=== PATIENT | male | born 1950 | race Caucasian/White ===

== ENCOUNTER 2020-04-16 09:38 | Outpatient (REF) | payer MEDICARE, SELFPAY ==
[2020-04-16 10:06] LABS: MANUAL DIFF FLAG NO
[2020-04-16 10:09] LABS: Basophils Absolute Auto 0.1 X10*3/uL (0.0-0.2); Basophils Percent Auto 1.8 % (0-2); Eosinophils Absolute Auto 0.3 X10*3/uL (0.0-0.4); Eosinophils Percent Auto 4.5 % (0-4); Hematocrit 44.2 % (42-52); Hemoglobin 15.1 g/dl (14.0-18.0); Imm Gran Abs Auto 0.02 X10*3/uL (0.00-0.03); Imm Gran Pct Auto 0.3 % (0.0-0.4); Lymphocytes Absolute Auto 1.4 X10*3/uL (1.2-4.9); Lymphocytes Percent Auto 23.1 % (20-40); Mean Corpuscular HGB Conc 34.2 g/dl (31.0-36.0); Mean Corpuscular Hemoglobin 32.3 pg (27.0-33.0); Mean Corpuscular Volume 94.6 fL (80-98); Mean Platelet Volume 9.3 fL (9.4-12.4); Monocytes Absolute Auto 0.6 X10*3/uL (0.1-1.2); Monocytes Percent Auto 9.4 % (2-11); Neutrophils Absolute Auto 3.8 X10*3/uL (2.0-8.3); Neutrophils Percent Auto 60.9 % (45-73); Platelet Count 218 X10*3/uL (160-400); Red Blood Count 4.67 X10*6/uL (4.60-5.80); Red Cell Distribution Width 11.9 % (11.0-16.0); White Blood Count 6.2 X10*3/uL (4.8-10.8)
[2020-04-16 10:29] LABS: Alanine Aminotransferase 51 U/L (0-40); Albumin Level 4.6 g/dL (3.5-5.0); Alkaline Phosphatase 101 U/L (39-117); Anion Gap 10 (12-20); Aspartate Amino Transferase 41 U/L (5-37); Bilirubin Total 1.2 mg/dL (0.0-1.0); Blood Urea Nitrogen 13 mg/dL (9-16); Calcium 9.9 mg/dL (8.4-10.2); Carbon Dioxide 32 mmol/L (22-29); Chloride 102 mmol/L (96-108); Cholesterol 190 mg/dL; Estimated Glomerular Filt Rate > 60; Glucose Fasting 111 mg/dL (60-99); HDL Cholesterol 66 mg/dL; LDL Cholesterol Calculated 110 mg/dl; Potassium 4.5 mmol/l (3.3-5.1); Sodium 139 mmol/L (135-145); Total Protein 7.5 g/dL (6.5-8.0); Triglycerides 71 mg/dL
[2020-04-18 08:52] LABS: Vitamin B12 226 pg/mL (200-900)
== END 2020-04-16 09:39 | disposition home or self-care (01) ==
LOC: HO.LAB 09:38
PROVIDERS: PCP Internal Medicine Medical Oncology; Visit Provider Internal Medicine Medical Oncology
DX: M54.5 Low back pain (principal); E78.5 Hyperlipidemia, unspecified
CPT/HCPCS: 36415; 80053; 80061; 82607; 85025

== ENCOUNTER 2020-07-18 11:32 | Outpatient (REF) | payer MEDICARE, SELFPAY | END 2020-07-18 11:33 | disposition home or self-care (01) | LOC: HO.LAB 11:32 | PROVIDERS: Visit Provider Internal Medicine | DX: Z20.822 Contact with and (suspected) exposure to COVID-19 (principal) | CPT/HCPCS: 36415; C9803; U0003; U0005 ==

== ENCOUNTER 2020-08-13 09:31 | Outpatient (REF) | payer MEDICARE, SELFPAY ==
[2020-08-13 10:10] LABS: MANUAL DIFF FLAG NO
[2020-08-13 10:14] LABS: Basophils Absolute Auto 0.1 X10*3/uL (0.0-0.2); Basophils Percent Auto 1.8 % (0-2); Eosinophils Absolute Auto 0.3 X10*3/uL (0.0-0.4); Eosinophils Percent Auto 4.1 % (0-4); Hematocrit 41.6 % (42-52); Imm Gran Abs Auto 0.02 X10*3/uL (0.00-0.03); Imm Gran Pct Auto 0.3 % (0.0-0.4); Lymphocytes Absolute Auto 1.3 X10*3/uL (1.2-4.9); Lymphocytes Percent Auto 19.8 % (20-40); Mean Corpuscular HGB Conc 33.7 g/dl (31.0-36.0); Mean Corpuscular Volume 95.2 fL (80-98); Mean Platelet Volume 9.6 fL (9.4-12.4); Monocytes Absolute Auto 0.5 X10*3/uL (0.1-1.2); Monocytes Percent Auto 7.2 % (2-11); Neutrophils Absolute Auto 4.3 X10*3/uL (2.0-8.3); Neutrophils Percent Auto 66.8 % (45-73); Platelet Count 195 X10*3/uL (160-400); Red Blood Count 4.37 X10*6/uL (4.60-5.80); Red Cell Distribution Width 12.5 % (11.0-16.0); White Blood Count 6.5 X10*3/uL (4.8-10.8)
[2020-08-13 10:44] LABS: Alanine Aminotransferase 43 U/L (0-40); Albumin Level 4.5 g/dL (3.5-5.0); Alkaline Phosphatase 96 U/L (39-117); Anion Gap 12 (12-20); Aspartate Amino Transferase 35 U/L (5-37); Bilirubin Total 1.2 mg/dL (0.0-1.0); Blood Urea Nitrogen 18 mg/dL (9-16); Calcium 9.7 mg/dL (8.4-10.2); Carbon Dioxide 30 mmol/L (22-29); Chloride 104 mmol/L (96-108); Cholesterol 204 mg/dL; Estimated Glomerular Filt Rate > 60; Glucose Fasting 114 mg/dL (60-99); HDL Cholesterol 73 mg/dL; LDL Cholesterol Calculated 114 mg/dl; Potassium 4.7 mmol/L (3.3-5.1); Sodium 141 mmol/L (135-145); Total Protein 7.3 g/dL (6.5-8.0); Triglycerides 85 mg/dL
== END 2020-08-13 09:32 | disposition home or self-care (01) ==
LOC: HO.LAB 09:31
PROVIDERS: PCP Internal Medicine Medical Oncology; Visit Provider Internal Medicine Medical Oncology
DX: Z12.5 Encounter for screening for malignant neoplasm of prostate (principal); N40.0 Benign prostatic hyperplasia without lower urinary tract symptoms; E78.5 Hyperlipidemia, unspecified
CPT/HCPCS: 36415; 80053; 80061; 84153; 85025

== ENCOUNTER 2020-12-16 11:13 | Outpatient (REF) | payer MEDICARE, SELFPAY ==
[2020-12-16 12:03] LABS: MANUAL DIFF FLAG NO
[2020-12-16 12:14] LABS: Basophils Absolute Auto 0.1 X10*3/uL (0.0-0.2); Basophils Percent Auto 1.3 % (0-2); Eosinophils Absolute Auto 0.2 X10*3/uL (0.0-0.4); Eosinophils Percent Auto 3.3 % (0-4); Hematocrit 42.1 % (42-52); Hemoglobin 14.3 g/dl (14.0-18.0); Imm Gran Abs Auto 0.03 X10*3/uL (0.00-0.03); Imm Gran Pct Auto 0.4 % (0.0-0.4); Lymphocytes Absolute Auto 1.7 X10*3/uL (1.2-4.9); Lymphocytes Percent Auto 24.2 % (20-40); Mean Corpuscular Volume 94.2 fL (80-98); Mean Platelet Volume 9.4 fL (9.4-12.4); Monocytes Absolute Auto 0.6 X10*3/uL (0.1-1.2); Monocytes Percent Auto 7.9 % (2-11); Neutrophils Absolute Auto 4.4 X10*3/uL (2.0-8.3); Neutrophils Percent Auto 62.9 % (45-73); Platelet Count 192 X10*3/uL (160-400); Red Blood Count 4.47 X10*6/uL (4.60-5.80); Red Cell Distribution Width 12.4 % (11.0-16.0)
[2020-12-16 12:37] LABS: Alanine Aminotransferase 70 U/L (0-40); Albumin Level 4.6 g/dL (3.5-5.0); Alkaline Phosphatase 101 U/L (39-117); Anion Gap 13 (12-20); Aspartate Amino Transferase 45 U/L (5-37); Bilirubin Total 1.4 mg/dL (0.0-1.0); Blood Urea Nitrogen 12 mg/dL (9-16); Calcium 10.3 mg/dL (8.4-10.2); Carbon Dioxide 29 mmol/L (22-29); Chloride 103 mmol/L (96-108); Cholesterol 193 mg/dL; Estimated Glomerular Filt Rate > 60; Glucose Fasting 95 mg/dL (60-99); HDL Cholesterol 74 mg/dL; LDL Cholesterol Calculated 105 mg/dl; Potassium 4.7 mmol/L (3.3-5.1); Sodium 140 mmol/L (135-145); Total Protein 7.4 g/dL (6.5-8.0); Triglycerides 72 mg/dL
== END 2020-12-16 11:14 | disposition home or self-care (01) ==
LOC: HO.LAB 11:13
PROVIDERS: PCP Internal Medicine Medical Oncology; Visit Provider Internal Medicine Medical Oncology
DX: N40.0 Benign prostatic hyperplasia without lower urinary tract symptoms (principal); E78.5 Hyperlipidemia, unspecified; K21.9 Gastro-esophageal reflux disease without esophagitis
CPT/HCPCS: 36415; 80053; 80061; 85025

== ENCOUNTER 2021-04-14 10:08 | Outpatient (REF) | payer MEDICARE, SELFPAY ==
[2021-04-14 11:26] LABS: MANUAL DIFF FLAG NO
[2021-04-14 11:38] LABS: Basophils Absolute Auto 0.1 X10*3/uL (0.0-0.2); Basophils Percent Auto 1.9 % (0-2); Eosinophils Absolute Auto 0.3 X10*3/uL (0.0-0.4); Eosinophils Percent Auto 3.9 % (0-4); Hematocrit 43.7 % (42.0-52.0); Hemoglobin 14.6 g/dl (14.0-18.0); Imm Gran Abs Auto 0.02 X10*3/uL (0.00-0.03); Imm Gran Pct Auto 0.3 % (0.0-0.4); Lymphocytes Absolute Auto 1.5 X10*3/uL (1.2-4.9); Lymphocytes Percent Auto 23.9 % (20-40); Mean Corpuscular HGB Conc 33.4 g/dl (31.0-36.0); Mean Corpuscular Hemoglobin 31.8 pg (27.0-33.0); Mean Corpuscular Volume 95.2 fL (80.0-98.0); Mean Platelet Volume 9.6 fL (9.4-12.4); Monocytes Absolute Auto 0.7 X10*3/uL (0.1-1.2); Neutrophils Absolute Auto 3.8 x10*3/uL (2.0-8.3); Platelet Count 250 X10*3/uL (160-400); Red Blood Count 4.59 X10*6/uL (4.60-5.80); Red Cell Distribution Width 12.8 % (11.0-16.0); White Blood Count 6.5 X10*3/uL (4.8-10.8)
[2021-04-14 12:09] LABS: Alanine Aminotransferase 98 U/L (0-40); Albumin Level 4.4 g/dL (3.5-5.0); Alkaline Phosphatase 119 U/L (39-117); Anion Gap 11 (12-20); Aspartate Amino Transferase 63 U/L (5-37); Bilirubin Total 1.2 mg/dL (0.0-1.0); Blood Urea Nitrogen 12 mg/dL (9-16); Carbon Dioxide 30 mmol/L (22-29); Chloride 101 mmol/L (96-108); Cholesterol 201 mg/dL; Estimated Glomerular Filt Rate > 60; Glucose Fasting 96 mg/dL (60-99); HDL Cholesterol 64 mg/dL; LDL Cholesterol Calculated 114 mg/dl; Potassium 4.3 mmol/L (3.3-5.1); Sodium 138 mmol/L (135-145); Total Protein 7.5 g/dL (6.5-8.0); Triglycerides 115 mg/dL
[2021-04-14 12:11] LABS: Prostate Specific Antigen 0.49 ng/mL (<0.05-4.0)
== END 2021-04-14 10:09 | disposition home or self-care (01) ==
LOC: HO.HMGCLDS 10:08
PROVIDERS: PCP Internal Medicine Medical Oncology; Visit Provider Internal Medicine Medical Oncology
DX: M51.24 Other intervertebral disc displacement, thoracic region (principal); E78.5 Hyperlipidemia, unspecified; N40.0 Benign prostatic hyperplasia without lower urinary tract symptoms
CPT/HCPCS: 36415; 80053; 80061; 84153; 85025

== ENCOUNTER 2021-04-25 08:54 | Outpatient (REF) | payer MEDICARE, SELFPAY | END 2021-04-25 08:55 | disposition home or self-care (01) | LOC: HO.LAB 08:54 | PROVIDERS: Visit Provider Internal Medicine | DX: Z13.89 Encounter for screening for other disorder (principal) ==

== ENCOUNTER 2021-06-24 11:38 | Outpatient (REF) | payer MEDICARE, SELFPAY ==
[2021-06-24 13:10] LABS: MANUAL DIFF FLAG NO
[2021-06-24 13:27] LABS: Basophils Absolute Auto 0.1 X10*3/uL (0.0-0.2); Basophils Percent Auto 1.6 % (0-2); Eosinophils Absolute Auto 0.2 X10*3/uL (0.0-0.4); Eosinophils Percent Auto 3.9 % (0-4); Hematocrit 40.7 % (42.0-52.0); Hemoglobin 13.9 g/dl (14.0-18.0); Imm Gran Abs Auto 0.02 X10*3/uL (0.00-0.03); Imm Gran Pct Auto 0.4 % (0.0-0.4); Lymphocytes Absolute Auto 1.4 X10*3/uL (1.2-4.9); Lymphocytes Percent Auto 25.4 % (20-40); Mean Corpuscular HGB Conc 34.2 g/dl (31.0-36.0); Mean Corpuscular Volume 93.8 fL (80.0-98.0); Mean Platelet Volume 9.7 fL (9.4-12.4); Monocytes Absolute Auto 0.6 X10*3/uL (0.1-1.2); Monocytes Percent Auto 10.2 % (2-11); Neutrophils Absolute Auto 3.3 x10*3/uL (2.0-8.3); Neutrophils Percent Auto 58.5 % (45-73); Platelet Count 201 X10*3/uL (160-400); Red Blood Count 4.34 X10*6/uL (4.60-5.80); Red Cell Distribution Width 12.2 % (11.0-16.0); White Blood Count 5.6 X10*3/uL (4.8-10.8)
[2021-06-24 13:50] LABS: Gamma Glutamyl Transpeptidase 441 U/L (11-51); Lactate Dehydrogenase 149 U/L (118-273)
[2021-06-24 14:16] LABS: Erythrocyte Sedimentation Rate 7 MM/HR (0-15)
== END 2021-06-24 11:39 | disposition home or self-care (01) ==
LOC: HO.HMGCLDS 11:38
PROVIDERS: PCP Internal Medicine Medical Oncology; Visit Provider Internal Medicine Medical Oncology
DX: E78.5 Hyperlipidemia, unspecified (principal)
CPT/HCPCS: 36415; 82977; 83615; 85025; 85652

== ENCOUNTER 2021-07-26 13:10 | Outpatient (REF) | payer MEDICARE, SELFPAY ==
[2021-07-26 17:36] LABS: Alanine Aminotransferase 41 U/L (0-40); Albumin Level 4.2 g/dL (3.5-5.0); Alkaline Phosphatase 101 U/L (39-117); Anion Gap 10 (12-20); Aspartate Amino Transferase 29 U/L (5-37); Bilirubin Total 0.8 mg/dL (0.0-1.0); Blood Urea Nitrogen 17 mg/dL (9-16); Calcium 9.9 mg/dL (8.4-10.2); Carbon Dioxide 29 mmol/L (22-29); Chloride 105 mmol/L (96-108); Estimated Glomerular Filt Rate > 60; Glucose Random 97 mg/dL (60-115); Potassium 3.9 mmol/L (3.3-5.1); Sodium 140 mmol/L (135-145); Total Protein 6.9 g/dL (6.5-8.0)
[2021-07-26 17:47] LABS: Gamma Glutamyl Transpeptidase 188 U/L (11-51)
[2021-07-26 20:41] LABS: Erythrocyte Sedimentation Rate 11 MM/HR (0-15)
== END 2021-07-26 13:11 | disposition home or self-care (01) ==
LOC: HO.HMGCLDS 13:10
PROVIDERS: PCP Internal Medicine Medical Oncology; Visit Provider Internal Medicine Medical Oncology
DX: K21.9 Gastro-esophageal reflux disease without esophagitis (principal); R79.89 Other specified abnormal findings of blood chemistry
CPT/HCPCS: 36415; 80053; 82977; 85652

== ENCOUNTER 2021-12-16 10:37 | Outpatient (REF) | payer MEDICARE, SELFPAY ==
[2021-12-16 11:10] LABS: MANUAL DIFF FLAG NO
[2021-12-16 11:13] LABS: Basophils Absolute Auto 0.1 X10*3/uL (0.0-0.2); Basophils Percent Auto 1.4 % (0-2); Eosinophils Absolute Auto 0.3 X10*3/uL (0.0-0.4); Eosinophils Percent Auto 4.2 % (0-4); Hematocrit 41.9 % (42.0-52.0); Hemoglobin 14.3 g/dl (14.0-18.0); Imm Gran Abs Auto 0.05 X10*3/uL (0.00-0.03); Imm Gran Pct Auto 0.8 % (0.0-0.4); Lymphocytes Absolute Auto 1.3 X10*3/uL (1.2-4.9); Mean Corpuscular HGB Conc 34.1 g/dl (31.0-36.0); Mean Corpuscular Volume 93.7 fL (80.0-98.0); Mean Platelet Volume 9.2 fL (9.4-12.4); Monocytes Absolute Auto 0.6 X10*3/uL (0.1-1.2); Monocytes Percent Auto 9.4 % (2-11); Neutrophils Absolute Auto 4.2 x10*3/uL (2.0-8.3); Neutrophils Percent Auto 64.2 % (45-73); Platelet Count 197 X10*3/uL (160-400); Red Blood Count 4.47 X10*6/uL (4.60-5.80); Red Cell Distribution Width 12.8 % (11.0-16.0); White Blood Count 6.5 X10*3/uL (4.8-10.8)
[2021-12-16 11:35] LABS: Alanine Aminotransferase 65 U/L (0-40); Albumin Level 4.3 g/dL (3.5-5.0); Alkaline Phosphatase 104 U/L (39-117); Anion Gap 14 (12-20); Aspartate Amino Transferase 44 U/L (5-37); Bilirubin Total 1.6 mg/dL (0.0-1.0); Blood Urea Nitrogen 13 mg/dL (9-16); Calcium 9.7 mg/dL (8.4-10.2); Carbon Dioxide 27 mmol/L (22-29); Chloride 101 mmol/L (96-108); Cholesterol 192 mg/dL; Estimated Glomerular Filt Rate > 60; Gamma Glutamyl Transpeptidase 360 U/L (11-51); Glucose Random 96 mg/dL (60-115); HDL Cholesterol 66 mg/dL; LDL Cholesterol Calculated 108 mg/dl; Potassium 4.1 mmol/L (3.3-5.1); Sodium 138 mmol/L (135-145); Total Protein 7.1 g/dL (6.5-8.0); Triglycerides 93 mg/dL
[2021-12-16 11:53] LABS: Prostate Specific Antigen 0.43 ng/mL (<0.05-4.0)
== END 2021-12-16 10:38 | disposition home or self-care (01) ==
LOC: HO.HMGCLDS 10:37
PROVIDERS: PCP Internal Medicine Medical Oncology; Visit Provider Internal Medicine Medical Oncology
DX: Z12.5 Encounter for screening for malignant neoplasm of prostate (principal); K21.9 Gastro-esophageal reflux disease without esophagitis; R35.1 Nocturia; N40.0 Benign prostatic hyperplasia without lower urinary tract symptoms; R79.89 Other specified abnormal findings of blood chemistry; E66.3 Overweight
CPT/HCPCS: 36415; 80053; 80061; 82977; 84153; 85025

== ENCOUNTER 2022-03-19 10:15 | Outpatient (REF) | payer MEDICARE, SELFPAY ==
[2022-03-19 11:36] LABS: MANUAL DIFF FLAG NO
[2022-03-19 11:54] LABS: Basophils Absolute Auto 0.1 X10*3/uL (0.0-0.2); Basophils Percent Auto 1.4 % (0-2); Eosinophils Absolute Auto 0.2 X10*3/uL (0.0-0.4); Eosinophils Percent Auto 2.5 % (0-4); Hematocrit 40.8 % (42.0-52.0); Hemoglobin 13.7 g/dl (14.0-18.0); Imm Gran Abs Auto 0.06 X10*3/uL (0.00-0.03); Imm Gran Pct Auto 0.9 % (0.0-0.4); Lymphocytes Absolute Auto 1.3 X10*3/uL (1.2-4.9); Lymphocytes Percent Auto 19.7 % (20-40); Mean Corpuscular HGB Conc 33.6 g/dl (31.0-36.0); Mean Corpuscular Volume 95.3 fL (80.0-98.0); Mean Platelet Volume 9.3 fL (9.4-12.4); Monocytes Absolute Auto 0.8 X10*3/uL (0.1-1.2); Monocytes Percent Auto 11.7 % (2-11); Neutrophils Absolute Auto 4.1 x10*3/uL (2.0-8.3); Neutrophils Percent Auto 63.8 % (45-73); Platelet Count 205 X10*3/uL (160-400); Red Blood Count 4.28 X10*6/uL (4.60-5.80); Red Cell Distribution Width 13.7 % (11.0-16.0); White Blood Count 6.4 X10*3/uL (4.8-10.8)
[2022-03-19 12:33] LABS: Alanine Aminotransferase 43 U/L (0-40); Albumin Level 4.4 g/dL (3.5-5.0); Alkaline Phosphatase 97 U/L (39-117); Anion Gap 15 (12-20); Aspartate Amino Transferase 34 U/L (5-37); Bilirubin Total 1.4 mg/dL (0.0-1.0); Blood Urea Nitrogen 13 mg/dL (9-16); Calcium 9.8 mg/dL (8.4-10.2); Carbon Dioxide 27 mmol/L (22-29); Chloride 101 mmol/L (96-108); Cholesterol 203 mg/dL; Estimated Glomerular Filt Rate > 60; Glucose Fasting 96 mg/dL (60-99); HDL Cholesterol 80 mg/dL; LDL Cholesterol Calculated 105 mg/dl; Potassium 3.9 mmol/L (3.3-5.1); Sodium 139 mmol/L (135-145); Total Protein 7.4 g/dL (6.5-8.0); Triglycerides 92 mg/dL
== END 2022-03-19 10:16 | disposition home or self-care (01) ==
LOC: HO.HMGCLDS 10:15
PROVIDERS: PCP Internal Medicine Medical Oncology; Visit Provider Internal Medicine Medical Oncology
DX: E78.5 Hyperlipidemia, unspecified (principal); E66.3 Overweight
CPT/HCPCS: 36415; 80053; 80061; 85025

== ENCOUNTER 2022-07-18 09:15 | Outpatient (REF) | payer MEDICARE, SELFPAY ==
[2022-07-18 11:52] LABS: MANUAL DIFF FLAG NO
[2022-07-18 12:06] LABS: Basophils Absolute Auto 0.1 X10*3/uL (0.0-0.2); Basophils Percent Auto 1.7 % (0-2); Eosinophils Absolute Auto 0.2 X10*3/uL (0.0-0.4); Eosinophils Percent Auto 2.6 % (0-4); Hemoglobin 14.8 g/dl (14.0-18.0); Imm Gran Abs Auto 0.03 X10*3/uL (0.00-0.03); Imm Gran Pct Auto 0.5 % (0.0-0.4); Lymphocytes Absolute Auto 1.2 X10*3/uL (1.2-4.9); Lymphocytes Percent Auto 17.7 % (20-40); Mean Corpuscular HGB Conc 34.4 g/dl (31.0-36.0); Mean Corpuscular Hemoglobin 32.7 pg (27.0-33.0); Mean Corpuscular Volume 95.1 fL (80.0-98.0); Mean Platelet Volume 9.5 fL (9.4-12.4); Monocytes Absolute Auto 0.6 X10*3/uL (0.1-1.2); Monocytes Percent Auto 9.5 % (2-11); Neutrophils Absolute Auto 4.5 x10*3/uL (2.0-8.3); Platelet Count 212 X10*3/uL (160-400); Red Blood Count 4.52 X10*6/uL (4.60-5.80); Red Cell Distribution Width 12.7 % (11.0-16.0); White Blood Count 6.6 X10*3/uL (4.8-10.8)
[2022-07-18 13:04] LABS: Alanine Aminotransferase 59 U/L (0-40); Albumin Level 3.9 g/dL (3.5-5.0); Alkaline Phosphatase 90 U/L (39-117); Anion Gap 13 (12-20); Aspartate Amino Transferase 44 U/L (5-37); Bilirubin Total 1.5 mg/dL (0.0-1.0); Blood Urea Nitrogen 11 mg/dL (9-16); Calcium 9.3 mg/dL (8.4-10.2); Carbon Dioxide 26 mmol/L (22-29); Chloride 105 mmol/L (96-108); Cholesterol 185 mg/dL; Estimated Glomerular Filt Rate > 60; Glucose Fasting 114 mg/dL (60-99); HDL Cholesterol 66 mg/dL; LDL Cholesterol Calculated 104 mg/dl; Potassium 3.9 mmol/L (3.3-5.1); Prostate Specific Antigen 0.49 ng/mL (<0.05-4.0); Sodium 140 mmol/L (135-145); Total Protein 6.4 g/dL (6.5-8.0); Triglycerides 79 mg/dL
== END 2022-07-18 09:16 | disposition home or self-care (01) ==
LOC: HO.HMGCLDS 09:15
PROVIDERS: PCP Internal Medicine Medical Oncology; Visit Provider Internal Medicine Medical Oncology
DX: R79.89 Other specified abnormal findings of blood chemistry (principal); K21.9 Gastro-esophageal reflux disease without esophagitis; E78.5 Hyperlipidemia, unspecified; R35.1 Nocturia; Z12.5 Encounter for screening for malignant neoplasm of prostate
CPT/HCPCS: 36415; 80053; 80061; 84153; 85025

== ENCOUNTER 2022-07-25 11:35 | Outpatient (REF) | payer MEDICARE, SELFPAY ==
[2022-07-25 14:50] LABS: B Type Natriuretic Peptide 24 pg/mL (<100); Free T4 (Free Thyroxine) 0.84 ng/dL (0.71-1.85); Thyroid Stimulating Hormone 1.07 uIU/mL (0.32-4.0)
[2022-07-25 15:26] LABS: Erythrocyte Sedimentation Rate 5 MM/HR (0-15)
== END 2022-07-25 11:36 | disposition home or self-care (01) ==
LOC: HO.HMGCLDS 11:35
PROVIDERS: Visit Provider Internal Medicine Medical Oncology
DX: R00.2 Palpitations (principal); R00.0 Tachycardia, unspecified
CPT/HCPCS: 36415; 83880; 84439; 84443; 85652

== ENCOUNTER → 2022-07-27 08:52 | Outpatient (REF) | payer MEDICARE, SELFPAY ==
--- NOTE | 2022-07-27 08:54 | CA_ITS ---
Transthoracic Echocardiogram Patient (Last, First, Middle): Miguel Cid H Gender: Male Date of : 1950 Age: 71 Procedure Date: 07/27/2022 Procedure Type: Transthoracic Echocardiogram Location: OP Height: 182.88 cm Weight: 83.92 kg BSA: 2.06 m2 Heart Rate: bpm BP: 118 / 66 mmHg Poultryman: Referring MD: Ian Carney MD Symptoms: R00.2 PALPITATIONS R00.0 SINUS TACHYCARDIA Study Quality: Fair ECG Rhythm: Sinus Conclusions: - The left ventricular systolic function is normal. The visually estimated ejection fraction is between 55-60%. - No obvious valvular pathology seen on this study. Findings Left Ventricle Normal left ventricular cavity size. There is mildly increased left ventricular wall thickness. The left ventricular systolic function is normal. The visually estimated ejection fraction is between 55-60%. There is no evidence of regional wall motion abnormalities. Diastolic function is normal for age. LV peak GLS -16.3%. Right Ventricle Normal right ventricular cavity size and systolic function. Atria Both atria are normal in size. Aortic Valve There is a normal trileaflet aortic valve. There is mild calcification of the aortic valve. There is no aortic valve stenosis. There is no aortic valve regurgitation. Mitral Valve The mitral valve appears normal. There is mild mitral annular calcification. There is no mitral valve regurgitation. There is no mitral valve stenosis. Pulmonic Valve The pulmonic valve is likely normal. Tricuspid Valve Normal tricuspid valve structure. There is trace tricuspid valve regurgitation. There is no evidence of pulmonary hypertension. Great Vessels The asc aorta is normal in size. Venous The inferior vena cava is normal in size and collapses greater than 50% with inspiration. Pericardium/Pleural There is no evidence of pericardial effusion. Prior Study Comparison No significant change compared to prior study dated: 02/03/2010. Recommendations, Care & Conclusions No obvious valvular pathology seen on this study. Measurements 2D Linear Measurements IVSd: 1.23 0.6-0.9/0.6-1.0 cm LVIDd: 4.25 3.9-5.3/4.2-5.9 cm LVIDd Index: 2.06 2.4-3.2/2.2-3.1 cm/m2 LVIDs: 2.97 2.0-3.6 cm LVPWd: 1.28 0.7-1.1 cm Ao Root: 3.30 2.1-3.5 cm LA Diam: 3.80 2.7-3.8/3.0-4.0 cm LAIDs Index: 1.84 1.5-2.3 cm/m2 LV Mass: 241.44 67-162/88-224 g LV Mass Index: 117.20 43-95/49-115 g/m2 LVOT Diam: 2.20 3.0+(-)1.3 cm 2D Systolic Function EF 4C: 55.60 >55% EF 2C: 46.60 >55% Mitral Valve MV Pk E: 0.62 MV PK A: 1.05 MV Decel Time: 140.00 E/A: 0.60 E'Lateral: 6.42 E'Medial: 5.66 E/E' Med: 10.90 E/E' Lat: 9.60 PHT: 41.00 MVA PHT: 5.37 Decel [place]: 4.40 Aortic Valve AoV Pk Des: 1.35 AoV Mn Des: 0.90 AoV VTI: 0.26 AoV Pk Grad: 7.00 Aov Mn Grad: 4.00 ZUNILDA Cont.VTI: 2.82 LVOT LVOT Pk Des: 0.94 LVOT Mn Des: 0.69 LVOT VTI: 0.19 LVOT Pk Grad: 4.00 LVOT Mn Grad: 2.00 LVOT Diam: 2.20 LVOT Area: 3.80 Diastolic Function MV Pk E: 0.62 MV Pk A: 1.05 E/A: 0.60 E'Medial: 5.66 E/E' Med: 10.90 E' Laterial: 6.42 E/E' Lat: 9.60 Right Ventricle TAPSE (mm): 28.00 TVS' Des: 14.00 Tricuspid Valve TR Pk Des: 1.85 TR Pk Grad: 14.00 RA Press: 3.00 RVSP: 17.00 Great Vessels Aorta Ao Root-2D: 3.30 2.0-3.7 cm Ao Asc: 3.20 2.1-3.4 cm Pulmonary Valve PV Pk Des: 0.94 Peak PV Grad: 4.00 Updated in Other Vendor System with Status of Final Isaiah Saba MD electronically signed on 07/28/2022 10:59:13 AM with status of Final
== END ==
LOC: HO.CARD 08:52
PROVIDERS: PCP Internal Medicine Medical Oncology; Visit Provider Internal Medicine Medical Oncology
DX: R00.2 Palpitations (principal); R00.0 Tachycardia, unspecified
CPT/HCPCS: 93306; 93356

== ENCOUNTER 2022-09-29 12:15 | Outpatient (REF) | payer MEDICARE, SELFPAY ==
--- NOTE | ~2022-09-29 | XR_ITS ---
EXAMINATION: XR CERVICAL SPINE CLINICAL INFORMATION: Left-sided shoulder and neck pain. COMPARISON: None available. TECHNIQUE: 5 views of the cervical spine were obtained. FINDINGS: There is mild 2 mm anterior subluxation of C2 with respect to C3, C3 with respect to C4, and C4 with respect to C5. Bone alignment is otherwise normal. There is multilevel degenerative spondylosis and degenerative disc disease, greatest at C4-C5, C5-C6 and C6-C7. There is right-sided neural foraminal narrowing from bony osteophyte from C3-C4 to C6-C7. There is left-sided neural foraminal narrowing from bony osteophyte from C3-C4 to C5-C6, greatest at C3-C4. Prevertebral soft tissues are normal. There is bilateral carotid calcification. XR/XR cervical spine 4V IMPRESSION: Multilevel degenerative changes.
== END 2022-09-29 12:16 | disposition home or self-care (01) ==
LOC: HO.HMGCX 12:15
PROVIDERS: PCP Internal Medicine Medical Oncology; Visit Provider Physical Medicine & Rehabilitation
DX: S16.1XXA Strain of muscle, fascia and tendon at neck level, initial encounter (principal)
CPT/HCPCS: 72050

== ENCOUNTER 2022-12-05 09:14 | Outpatient (REF) | payer MEDICARE, SELFPAY ==
[2022-12-05 11:36] LABS: MANUAL DIFF FLAG NO
[2022-12-05 11:40] LABS: Basophils Absolute Auto 0.1 X10*3/uL (0.0-0.2); Basophils Percent Auto 1.7 % (0-2); Eosinophils Absolute Auto 0.3 X10*3/uL (0.0-0.4); Eosinophils Percent Auto 4.1 % (0-4); Hematocrit 43.3 % (42.0-52.0); Hemoglobin 14.7 g/dl (14.0-18.0); Imm Gran Abs Auto 0.02 X10*3/uL (0.00-0.03); Imm Gran Pct Auto 0.3 % (0.0-0.4); Lymphocytes Absolute Auto 1.2 X10*3/uL (1.2-4.9); Lymphocytes Percent Auto 19.4 % (20-40); Mean Corpuscular HGB Conc 33.9 g/dl (31.0-36.0); Mean Corpuscular Hemoglobin 32.6 pg (27.0-33.0); Mean Platelet Volume 9.9 fL (9.4-12.4); Monocytes Absolute Auto 0.5 X10*3/uL (0.1-1.2); Monocytes Percent Auto 8.5 % (2-11); Platelet Count 210 X10*3/uL (160-400); Red Blood Count 4.51 X10*6/uL (4.60-5.80); Red Cell Distribution Width 12.5 % (11.0-16.0)
[2022-12-05 12:37] LABS: Prostate Specific Antigen 0.37 ng/mL (<0.05-4.0)
[2022-12-05 12:40] LABS: Alanine Aminotransferase 49 U/L (0-40); Albumin Level 4.2 g/dL (3.5-5.0); Alkaline Phosphatase 98 U/L (39-117); Anion Gap 14 (12-20); Aspartate Amino Transferase 37 U/L (5-37); Bilirubin Total 1.2 mg/dL (0.0-1.0); Blood Urea Nitrogen 11 mg/dL (9-16); Calcium 10.1 mg/dL (8.4-10.2); Carbon Dioxide 28 mmol/L (22-29); Chloride 103 mmol/L (96-108); Cholesterol 201 mg/dL; Estimated Glomerular Filt Rate > 60; Glucose Fasting 95 mg/dL (60-99); HDL Cholesterol 62 mg/dL; LDL Cholesterol Calculated 117 mg/dl; Potassium 4.1 mmol/L (3.3-5.1); Sodium 141 mmol/L (135-145); Total Protein 7.1 g/dL (6.5-8.0); Triglycerides 111 mg/dL; Uric Acid 6.9 mg/dL (3.4-7.0)
== END 2022-12-05 09:15 | disposition home or self-care (01) ==
LOC: HO.HMGCLDS 09:14
PROVIDERS: PCP Internal Medicine Medical Oncology; Visit Provider Internal Medicine Medical Oncology
DX: Z12.5 Encounter for screening for malignant neoplasm of prostate (principal); K21.9 Gastro-esophageal reflux disease without esophagitis; M54.12 Radiculopathy, cervical region; M10.9 Gout, unspecified; E78.5 Hyperlipidemia, unspecified; R35.1 Nocturia; N40.0 Benign prostatic hyperplasia without lower urinary tract symptoms; E55.9 Vitamin D deficiency, unspecified
CPT/HCPCS: 36415; 80053; 80061; 82306; 84153; 84550; 85025

== ENCOUNTER 2023-01-03 12:17 | Outpatient (REF) | payer MEDICARE, SELFPAY ==
--- NOTE | ~2023-01-03 | US_ITS ---
EXAMINATION: US EXTRACRANIAL CAROTID DUPLEX, BILATERAL CLINICAL INFORMATION: Coronary artery disease. Smoking. Hyperlipidemia. COMPARISON: None available. TECHNIQUE: Real-time ultrasound and Doppler techniques (integrating B-mode 2-D vascular images, Doppler spectral analysis and color-flow Doppler imaging) were utilized to interrogate the extracranial carotid arteries, the vertebral arteries and proximal subclavian arteries bilaterally. The degree of stenosis is determined by criteria similar to NASCET. FINDINGS: Right Side: 1. There is mild atherosclerotic plaque seen in the bifurcation/proximal ICA region. 2. The common carotid artery PSV proximally is 101 cm/s and distally 71 cm/s. 3. The proximal internal carotid artery velocities are 97 cm/s systolic and 30 cm/s diastolic. 4. The proximal external carotid artery PSV is 48 cm/s. 5. The vertebral artery shows antegrade flow. 6. The subclavian artery waveforms are normal. Left Side: 1. There is mild atherosclerotic plaque seen in the bifurcation/proximal ICA region. 2. The common carotid artery PSV proximally is 102 cm/s and distally 60 cm/s. 3. The proximal internal carotid artery velocities are 109 cm/s systolic and 51 cm/s diastolic. 4. The proximal external carotid artery PSV is 83 cm/s. 5. The vertebral artery shows and to flow. 6. The subclavian artery waveforms are normal. US/US carotid duplex BI IMPRESSION: 1. RIGHT: Minimal, non-hemodynamically significant stenosis of the proximal right internal carotid artery corresponding to a 0-49% stenosis by velocity criteria. 2. LEFT: Minimal, non-hemodynamically significant stenosis of the proximal left internal carotid artery corresponding to a 0-49% stenosis by velocity criteria.
== END 2023-01-03 12:18 | disposition home or self-care (01) ==
LOC: HO.HMGCX 12:17
PROVIDERS: PCP Internal Medicine Medical Oncology; Visit Provider Internal Medicine Medical Oncology
DX: I65.23 Occlusion and stenosis of bilateral carotid arteries (principal); I73.9 Peripheral vascular disease, unspecified; F17.200 Nicotine dependence, unspecified, uncomplicated; E78.5 Hyperlipidemia, unspecified
CPT/HCPCS: 93880

== ENCOUNTER 2023-06-04 10:50 | Outpatient (REF) | payer MEDICARE, SELFPAY ==
[2023-06-04 13:28] LABS: MANUAL DIFF FLAG NO
[2023-06-04 13:34] LABS: Basophils Absolute Auto 0.1 X10*3/uL (0.0-0.2); Basophils Percent Auto 1.6 % (0-2); Eosinophils Absolute Auto 0.2 X10*3/uL (0.0-0.4); Eosinophils Percent Auto 3.9 % (0-4); Hematocrit 40.6 % (42.0-52.0); Imm Gran Abs Auto 0.02 X10*3/uL (0.00-0.03); Imm Gran Pct Auto 0.3 % (0.0-0.4); Lymphocytes Absolute Auto 1.3 X10*3/uL (1.2-4.9); Lymphocytes Percent Auto 20.9 % (20-40); Mean Corpuscular HGB Conc 34.5 g/dl (31.0-36.0); Mean Corpuscular Hemoglobin 32.3 pg (27.0-33.0); Mean Corpuscular Volume 93.5 fL (80.0-98.0); Mean Platelet Volume 9.9 fL (9.4-12.4); Monocytes Absolute Auto 0.5 X10*3/uL (0.1-1.2); Monocytes Percent Auto 8.4 % (2-11); Neutrophils Percent Auto 64.9 % (45-73); Platelet Count 206 X10*3/uL (160-400); Red Blood Count 4.34 X10*6/uL (4.60-5.80); Red Cell Distribution Width 12.3 % (11.0-16.0); White Blood Count 6.2 X10*3/uL (4.8-10.8)
[2023-06-04 14:10] LABS: Alanine Aminotransferase 59 U/L (0-40); Albumin Level 4.2 g/dL (3.5-5.0); Alkaline Phosphatase 97 U/L (39-117); Anion Gap 11 (12-20); Aspartate Amino Transferase 40 U/L (5-37); Bilirubin Total 1.1 mg/dL (0.0-1.0); Blood Urea Nitrogen 13 mg/dL (9-16); Calcium 9.5 mg/dL (8.4-10.2); Carbon Dioxide 27 mmol/L (22-29); Chloride 104 mmol/L (96-108); Cholesterol 177 mg/dL (<200); Estimated Glomerular Filt Rate > 60; Glucose Fasting 109 mg/dL (60-99); HDL Cholesterol 63 mg/dL (>40); LDL Cholesterol Calculated 100 mg/dL (<100); Potassium 3.9 mmol/L (3.3-5.1); Sodium 138 mmol/L (135-145); Triglycerides 74 mg/dL (<150)
== END 2023-06-04 10:51 | disposition home or self-care (01) ==
LOC: HO.HMGCLDS 10:50
PROVIDERS: PCP Internal Medicine Medical Oncology; Visit Provider Internal Medicine Medical Oncology
DX: R00.0 Tachycardia, unspecified (principal); M10.9 Gout, unspecified; E78.5 Hyperlipidemia, unspecified; N40.0 Benign prostatic hyperplasia without lower urinary tract symptoms
CPT/HCPCS: 36415; 80053; 80061; 85025

== ENCOUNTER 2023-09-28 09:44 | Outpatient (REF) | payer MEDICARE, SELFPAY ==
[2023-09-28 11:29] LABS: MANUAL DIFF FLAG NO
[2023-09-28 11:51] LABS: Basophils Absolute Auto 0.1 X10*3/uL (0.0-0.2); Basophils Percent Auto 1.3 % (0-2); Eosinophils Absolute Auto 0.1 X10*3/uL (0.0-0.4); Eosinophils Percent Auto 2.3 % (0-4); Hematocrit 40.4 % (42.0-52.0); Imm Gran Abs Auto 0.02 X10*3/uL (0.00-0.03); Imm Gran Pct Auto 0.4 % (0.0-0.4); Lymphocytes Absolute Auto 0.9 X10*3/uL (1.2-4.9); Lymphocytes Percent Auto 16.5 % (20-40); Mean Corpuscular HGB Conc 34.7 g/dl (31.0-36.0); Mean Corpuscular Hemoglobin 32.4 pg (27.0-33.0); Mean Corpuscular Volume 93.5 fL (80.0-98.0); Mean Platelet Volume 9.6 fL (9.4-12.4); Monocytes Absolute Auto 0.4 X10*3/uL (0.1-1.2); Monocytes Percent Auto 7.7 % (2-11); Neutrophils Absolute Auto 3.8 x10*3/uL (2.0-8.3); Neutrophils Percent Auto 71.8 % (45-73); Platelet Count 189 X10*3/uL (160-400); Red Blood Count 4.32 X10*6/uL (4.60-5.80); Red Cell Distribution Width 12.4 % (11.0-16.0); White Blood Count 5.3 X10*3/uL (4.8-10.8)
[2023-09-28 12:15] LABS: Alanine Aminotransferase 70 U/L (0-40); Albumin Level 4.2 g/dL (3.5-5.0); Alkaline Phosphatase 97 U/L (39-117); Anion Gap 12 (12-20); Aspartate Amino Transferase 50 U/L (5-37); Bilirubin Total 1.1 mg/dL (0.0-1.0); Blood Urea Nitrogen 11 mg/dL (9-16); Calcium 9.8 mg/dL (8.4-10.2); Carbon Dioxide 27 mmol/L (22-29); Chloride 103 mmol/L (96-108); Cholesterol 184 mg/dL (<200); Estimated Glomerular Filt Rate > 60; Glucose Fasting 120 mg/dL (60-99); HDL Cholesterol 67 mg/dL (>40); LDL Cholesterol Calculated 101 mg/dL (<100); Potassium 4.2 mmol/L (3.3-5.1); Sodium 138 mmol/L (135-145); Total Protein 7.2 g/dL (6.5-8.0); Triglycerides 83 mg/dL (<150)
[2023-09-28 12:31] LABS: Prostate Specific Antigen 0.41 ng/mL (<0.05-4.0)
== END 2023-09-28 09:45 | disposition home or self-care (01) ==
LOC: HO.HMGCLDS 09:44
PROVIDERS: PCP Internal Medicine Medical Oncology; Visit Provider Internal Medicine Medical Oncology
DX: K21.9 Gastro-esophageal reflux disease without esophagitis (principal); M54.12 Radiculopathy, cervical region; E78.5 Hyperlipidemia, unspecified; R35.1 Nocturia; Z12.5 Encounter for screening for malignant neoplasm of prostate
CPT/HCPCS: 36415; 80053; 80061; 84153; 85025

== ENCOUNTER 2024-01-03 08:50 | Day surgery (SDC) | payer MEDICARE, SELFPAY ==
[2024-01-02 07:14] VITALS: BMI 26.7
--- NOTE | 2024-01-02 09:48 | P.CONAN_ITS ---
Documented by User: Corazon Ellis NP 01/02/24 09:48 HPI - Anesthesia Eval Consult details Narrative: 73yo M for Colonoscopy [facility] Past Medical History Medical History Kidney stone COPD (chronic obstructive pulmonary disease) Back pain Hiatal hernia GERD (gastroesophageal reflux disease) Hyperlipidemia Diverticulosis Tubular adenoma Surgical History Surgical History History of back surgery History of esophagogastroduodenoscopy (EGD) H/O colonoscopy Social History Social History Patient Tobacco Use Status: Former Tobacco user Have you been hit, kicked, punched, or otherwise hurt by someone within the past year? If so, by whom?: No Are you DNR?: No Advance Directives: No Advance Directives Information Provided: Yes Meds Allergies Allergy/AdvReac Type Severity Reaction Status Date / Time codeine [Codeine] AdvReac Mild NAUSEA Verified 01/03/24 09:26 Home Medications ?Medication ?Instructions ?Recorded ?Confirmed ?Last Taken ?Type B-complex with vitamin C 1 tab PO DAILY 01/02/24 01/02/24 Unknown History atorvastatin 10 mg tablet 10 mg PO DAILY 01/02/24 01/02/24 Unknown History docusate sodium 100 mg capsule 100 mg PO DAILY PRN Constipation 01/02/24 01/02/24 Unknown History (Colace) famotidine 10 mg tablet 10 mg PO BID PRN Acid Reflux 01/02/24 01/02/24 Unknown History fluticasone fur. 100 mcg-umeclid 1 ea inhalation DAILY 01/02/24 01/02/24 Unknown History 62.5 mcg-vilant 25 mcg inhalat.powder (Trelegy Ellipta) oxycodone 5 mg tablet 5 mg PO Q4H PRN pain 01/02/24 01/02/24 Unknown History Exam Height,Weight and Vital Signs: Height 5 ft 10 in Weight 84.368 kg Assessment and Plan Assessment Anesthesia Assessment: Chart Reviewed Documented by User: Marcie Bolden MD 01/03/24 10:43 [facility] Past Medical History Medical History Kidney stone COPD (chronic obstructive pulmonary disease) Back pain Hiatal hernia GERD (gastroesophageal reflux disease) Hyperlipidemia Diverticulosis Tubular adenoma Family History Family history of problems with anesthesia: No Surgical History Surgical History History of back surgery History of esophagogastroduodenoscopy (EGD) H/O colonoscopy History of Problems with Anesthesia: No Social History Social History Patient Tobacco Use Status: Former Tobacco user Have you been hit, kicked, punched, or otherwise hurt by someone within the past year? If so, by whom?: No Are you DNR?: No Advance Directives: No Advance Directives Information Provided: Yes Meds Allergies Allergy/AdvReac Type Severity Reaction Status Date / Time codeine [Codeine] AdvReac Mild NAUSEA Verified 01/03/24 09:26 Home Medications ?Medication ?Instructions ?Recorded ?Confirmed ?Last Taken ?Type B-complex with vitamin C 1 tab PO DAILY 01/02/24 01/02/24 Unknown History atorvastatin 10 mg tablet 10 mg PO DAILY 01/02/24 01/02/24 Unknown History docusate sodium 100 mg capsule 100 mg PO DAILY PRN Constipation 01/02/24 01/02/24 Unknown History (Colace) famotidine 10 mg tablet 10 mg PO BID PRN Acid Reflux 01/02/24 01/02/24 Unknown History fluticasone fur. 100 mcg-umeclid 1 ea inhalation DAILY 01/02/24 01/02/24 Unknown History 62.5 mcg-vilant 25 mcg inhalat.powder (Trelegy Ellipta) oxycodone 5 mg tablet 5 mg PO Q4H PRN pain 01/02/24 01/02/24 Unknown History Exam Airway Mallampati Class: II TM Dist: >3cm Neck ROM: Limited Heart: rrr Lungs: cta Assessment and Plan Assessment Anesthesia Assessment: Anesthesia Plan Discussed Final Anesthetic Review Family History of Problems with Anesthesia: No History of Problems with Anesthesia: No NPO: Yes ASA Class: III Final Preanesthetic Review: No Changes in Pt Med Stat, Meds/Allgs Chart Reviewed, Consent Obtained/Reviewed and Anes Risks/Benef Reviewed Patient Risk: Intermediate Procedure Risk: Low Anesthetic Plan Anesthetic Plan: MAC: Disposition: Standard PACU
[2024-01-03 09:08] VITALS: BP 164/90; PULSE 91; RESP 20; TEMP 36.4; O2SAT 96; BMI 27.1
[2024-01-03] MEDS: Lactated Ringers 1,000 ML 100 ML IVCONT (09:26)
[2024-01-03 11:47] VITALS: BP 124/74; PULSE 91; RESP 18; TEMP 36.2; O2SAT 98
--- NOTE | 2024-01-03 11:47 | P.BOP_ITS ---
Brief Operative Note Date of Service: 01/03/24 Pre-op diagnosis: Screening Post-op diagnosis: other (Colon polyps) Procedure: Colonoscopy to the cecum with hot snare polypectomy x 2 Surgeon: Ian Cronin MD Anesthesia: MAC Was an Fax Machine Operator used for this Procedure?: No Estimated blood loss (mL): 0 Pathology: other (A. Ascending colon polyp) Condition: stable Disposition: PACU
[2024-01-03 12:02] VITALS: BP 145/81; PULSE 86; RESP 18; TEMP 36.7; O2SAT 98
--- NOTE | 2024-01-03 12:36 | OP_ITS ---
DATE OF SERVICE: 01/03/2024 SURGEON: Ian Cronin MD INDICATIONS: The patient presents for followup of personal history of a tubular adenoma of the colon and need for colorectal cancer screening. Full consent was obtained from him for this, including risks of bleeding and perforation. PREOPERATIVE DIAGNOSIS: POSTOPERATIVE DIAGNOSIS: PROCEDURE PERFORMED: Colonoscopy to cecum with hot snare polypectomy x2. ESTIMATED BLOOD LOSS: COMPLICATIONS: ANESTHESIA: Medication used, monitored anesthesia care. ASSISTANTS: SPECIMENS: PREOPERATIVE DIAGNOSES: Colorectal cancer screening and personal history of tubular adenoma of the colon. POSTOPERATIVE DIAGNOSES: Colorectal cancer screening and personal history of tubular adenoma of the colon, colon polyps, diverticulosis, and internal hemorrhoids. DESCRIPTION OF PROCEDURE: The patient was placed in the left lateral decubitus position. The digital rectal exam revealed no abnormalities. The Olympus video pediatric colonoscope was entered into the rectum and advanced easily to the cecum. Once in the cecum I did identify normal-appearing cecal pouch with appendiceal orifice and a normal-appearing ileocecal valve. The entire cecum and ileocecal valve appeared normal. The scope was slowly withdrawn assessing all mucosal surfaces carefully. Preparation was excellent. In the ascending colon was an approximately 6 to 8 mm grossly adenomatous polyp, which was removed by hot snare polypectomy recovered by suction. The polypectomy site appeared clean, without any sign of residual polyp nor bleeding. There was a mild amount of sigmoid diverticulosis. I did not visualize any sign of colitis nor angiodysplasia. The only other polyp I visualized was approximately 6 to 8 mm grossly adenomatous polyp in the rectum, which was removed by hot snare polypectomy but not recovered. The polypectomy site appeared clean, without any sign of residual polyp nor bleeding. The scope was retroflexed visualizing some internal hemorrhoids, but no other pathology. The rectal mucosa otherwise appeared normal. The scope was straightened and withdrawn from the patient. He tolerated the procedure well and was returned to the recovery area in stable condition. IMPRESSION: 1. Colon polyps. 2. Diverticulosis. 3. Internal hemorrhoids. PLAN: The results of the pathology will be checked. I would recommend a repeat colonoscopy in 5 years. He was advised not to use any aspirin or NSAIDs for 1 week. MD MOON Caldwell/TUSHAR / [id number]
== END 2024-01-03 12:20 | disposition home or self-care (01) ==
PROVIDERS: PCP Internal Medicine Medical Oncology; Visit Provider Internal Medicine
PROC: 0DJD8ZZ Inspection of Lower Intestinal Tract, Via Natural or Artificial Opening Endoscopic (ICD-10-PCS; CPT 45378; principal; 2024-01-03 10:20)
DX: Z12.11 Encounter for screening for malignant neoplasm of colon (principal); Z86.010 Personal history of colon polyps; D12.2 Benign neoplasm of ascending colon; D12.8 Benign neoplasm of rectum; K57.30 Diverticulosis of large intestine without perforation or abscess without bleeding; K64.8 Other hemorrhoids; K21.9 Gastro-esophageal reflux disease without esophagitis; E78.5 Hyperlipidemia, unspecified; N20.0 Calculus of kidney; J44.9 Chronic obstructive pulmonary disease, unspecified; M54.9 Dorsalgia, unspecified; Z79.891 Long term (current) use of opiate analgesic; Z79.51 Long term (current) use of inhaled steroids; Z79.899 Other long term (current) drug therapy; Z87.891 Personal history of nicotine dependence
CPT/HCPCS: 45385; 88305; J2250; J2704

== ENCOUNTER 2024-01-30 10:50 | Outpatient (REF) | payer MEDICARE, SELFPAY ==
[2024-01-30 13:04] LABS: MANUAL DIFF FLAG NO
[2024-01-30 13:09] LABS: Basophils Absolute Auto 0.1 X10*3/uL (0.0-0.2); Basophils Percent Auto 1.9 % (0-2); Eosinophils Absolute Auto 0.2 X10*3/uL (0.0-0.4); Eosinophils Percent Auto 3.3 % (0-4); Hematocrit 41.8 % (42.0-52.0); Hemoglobin 14.4 g/dl (14.0-18.0); Imm Gran Abs Auto 0.02 X10*3/uL (0.00-0.03); Imm Gran Pct Auto 0.3 % (0.0-0.4); Lymphocytes Absolute Auto 1.3 X10*3/uL (1.2-4.9); Lymphocytes Percent Auto 22.8 % (20-40); Mean Corpuscular HGB Conc 34.4 g/dl (31.0-36.0); Mean Corpuscular Hemoglobin 32.7 pg (27.0-33.0); Mean Platelet Volume 9.4 fL (9.4-12.4); Monocytes Absolute Auto 0.5 X10*3/uL (0.1-1.2); Monocytes Percent Auto 9.1 % (2-11); Neutrophils Absolute Auto 3.6 x10*3/uL (2.0-8.3); Neutrophils Percent Auto 62.6 % (45-73); Platelet Count 185 X10*3/uL (160-400); Red Cell Distribution Width 12.6 % (11.0-16.0); White Blood Count 5.8 X10*3/uL (4.8-10.8)
[2024-01-30 13:39] LABS: Alanine Aminotransferase 55 U/L (0-40); Albumin Level 4.1 g/dL (3.5-5.0); Alkaline Phosphatase 96 U/L (39-117); Anion Gap 11 (12-20); Aspartate Amino Transferase 41 U/L (5-37); Bilirubin Total 1.1 mg/dL (0.0-1.0); Blood Urea Nitrogen 12 mg/dL (9-16); Calcium 9.6 mg/dL (8.4-10.2); Carbon Dioxide 26 mmol/L (22-29); Chloride 107 mmol/L (96-108); Cholesterol 188 mg/dL (<200); Estimated Glomerular Filt Rate > 60; Glucose Fasting 103 mg/dL (60-99); HDL Cholesterol 70 mg/dL (>40); LDL Cholesterol Calculated 101 mg/dL (<100); Potassium 3.9 mmol/L (3.3-5.1); Sodium 140 mmol/L (135-145); Triglycerides 85 mg/dL (<150)
== END 2024-01-30 10:51 | disposition home or self-care (01) ==
LOC: HO.HMGCLDS 10:50
PROVIDERS: PCP Internal Medicine Medical Oncology; Visit Provider Internal Medicine Medical Oncology
DX: Z00.00 Encounter for general adult medical examination without abnormal findings (principal); E66.3 Overweight
CPT/HCPCS: 36415; 80053; 80061; 85025

== ENCOUNTER 2024-02-26 09:25 | Outpatient (REF) | payer MEDICARE, SELFPAY ==
--- NOTE | ~2024-02-26 | US_ITS ---
EXAMINATION: US RETROPERITONEAL LIMITED (AORTA) CLINICAL INFORMATION: Former smoker. COMPARISON: CT abdomen and pelvis 08/25/2019. Ultrasound abdominal aorta 11/13/2012. TECHNIQUE: [place]-scale, color Doppler and spectral Doppler evaluation of the abdominal aorta. FINDINGS: The measurements of the aorta in maximum AP and transverse dimensions respectively are as follows: Proximal: 2.2 x 2.1 cm. Mid: 1.8 x 2.3 cm. Distal: 2.6 x 2.6 cm. PSV: 102 cm/s. The measurements of the common iliac arteries in maximum AP and TRV dimensions are as follows: Right Common Iliac Artery: 1.1 x 1.0 cm. Left Common Iliac Artery: 1.1 x 1.1 cm. US/US aorta IMPRESSION: No aneurysm found. Abdominal aorta normal in size measuring up to 2.6 cm.. Electronically signed by: Radha Sutherland MD 03/15/2024 06:57 PM EST
== END 2024-02-26 09:26 | disposition home or self-care (01) ==
LOC: HO.US 09:25
PROVIDERS: PCP Internal Medicine Medical Oncology; Visit Provider Internal Medicine Medical Oncology
DX: Z87.891 Personal history of nicotine dependence (principal)
CPT/HCPCS: 76775

== ENCOUNTER 2024-06-03 09:21 | Outpatient (REF) | payer MEDICARE, SELFPAY ==
--- OUTSIDE RECORDS SUMMARY | 2024-06-03 09:45 | XMS_ITS | Clinical Summary ---
Author Organization [address] [place] [address] Address [address] [place] [address] Phone Care Team Providers Care Sewer Connector Name Role Phone Ian Carney MD Primary Care Provider [phone] Allergies Active Allergy Reactions Criticality Noted Date Comments Codeine Nausea And Vomiting 06/28/2017 Medications Medication Sig Dispensed Refills Start Date End Date Status atorvastatin (LIPITOR) 10 mg tablet Take 1 tablet (10 mg total) by mouth 1 (one) time each day. Active Trelegy Ellipta 100-62.5-25 mcg inhaler INHALE 1 PUFF INTO THE LUNGS DAILY FOR 30 DAYS. Active oxyCODONE (ROXICODONE) 5 mg immediate release tablet TAKE 1 TAB BY MOUTH EVERY 4 HOURS NEEDED FOR PAIN. DX: PAIN (722.80). Active Active Problems Problem Noted Date Diagnosed Date Arthritis of carpometacarpal (CMC) joint of righ t thumb 05/27/2024 GERD (gastroesophageal reflux disease) 8 Cluster headaches 08/21/2017 Gout 08/21/2017 Hearing loss, left 08/21/2017 Lumbar disc herniation 08/21/2017 Overview (05/26/2024): 1977 Tubular adenoma of colon 08/21/2017 Asthma-COPD overlap syndrome 08/21/2017 Encounters Date Type Department Care Team Description 05/26/2024 10:30 AM EST Office Visit Orthopedic Surgery [facility] 175 [facility] [address] [place] [address] Paige Irving MD Arthritis of carpometacarpal (CMC) joint of right thumb (Primary Dx) from Last 3 Months Surgical History Surgery Date Site/Laterality Comments CHOLECYSTECTOMY PROCEDURE: HISTORICAL CHOLECYSTECTOMY BACK SURGERY PROCEDURE: HISTORICAL BACK SURGERY COLONOSCOPY 1998,2002,2007 PROCEDURE: HISTORICAL COLONOSCOPY Medical History Medical History Date Comments Asthma-COPD overlap syndrome (CMS/HCC) 08/21/2017 DX:Asthma-COPD overlap syndrome (HCC) Cluster headaches 08/21/2017 DX:Cluster hea daches GERD (gastroesophageal reflux disease) 08/21/2017 DX:GERD (gastroesophageal reflux disease) Cholelithiases 08/21/2017 DX:Cholelithiase s Hearing loss, left 08/21/2017 DX:Hearing lo ss, left Tubular adenoma of colon 08/21/2017 DX:Tubu lar adenoma of colon Lumbar disc herniation 08/21/2017 DX:Lumbar disc herniation; COMMENT: 1977 Gout 08/21/2017 DX:Gout Family History Medical History Relation Name Comments Other: leg amputation due to PVD Brother Parkinson's Disease Father pneumoni a, age 60 Glaucoma Mother age 93 Other: brain tumor Sister a fib, [place] BG Relation Name Status Comments Brother Father Mother Sister Social History Tobacco Use Types Packs/Day Years Used Date Smoking Tobacco: Former Cigarettes Smokeless Tobacco: Former Quit: 04/29/2013 Alcohol Use Standard Drinks/Week Comments Yes 1 (1 standard drink = 0.6 oz pur e alcohol) Sex and Gender Information Value Date Recorded Sex Assigned at Not on file Gender Identity Not on file Sexual Orientation Not on file Job Start Date Occupation Industry Not on file Not on file Not on file Obstetrics History Last Filed Vital Signs Vital Sign Reading Time Taken Comments Blood Pressure 128/68 09/30/2023 1:21 PM EDT Sit ting L Arm Pulse 94 09/30/2023 1:21 PM EDT Temperature - - Respiratory Rate - - Oxygen Saturation - - Inhaled Oxygen Concentration - - Weight 83.9 kg (185 lb) 05/26/2024 10:24 AM EST Height 180.3 cm (5' 11 ) 05/26/2024 10:24 AM EST Body Mass Index 25.8 05/26/2024 10:24 AM EST Plan of Treatment Health Maintenance Due Date Last Done Comments DTaP,Tdap,and Td Vaccines (1 - Tdap) 09/03/1971 Zoster Vaccines (1 of 2) 2002 Abdominal Aortic Aneurysm (AAA) Screen 04/07/2022 Cholesterol Screening (Lipid Panel) 04/07/2022 Colorectal Cancer Screening: Colonoscopy 04/07/2022 Depression Screening 04/07/2022 Falls Risk Assessment 04/07/2022 Hepatitis C Screening 04/07/2022 Medicare Annual Wellness Visit 04/07/2022 Social Influencers of Health Screening 04/07/2022 Hypertension/CHF/CAD Annual BMP Blood Test 02/05/2024 Lung Cancer Screening (Low Dose CT) 10/27/2024 10/28/2023, 10/22/2022, 10/23/2021, Additional history exists Pneumococcal Vaccine: 65+ Years Completed 02/22/2022, 06/30/2019 RSV Immunization Patients 60+ Years Old Completed 04/11/2023 Influenza Vaccine Completed 02/07/2024, , 02/13/2022, Additional history exists COVID-19 Vaccine Completed 02/13/2024, 12/2022, 04/09/2022, Additional history exists HIB Vaccines Aged Out No longer eligi ble based on patient's age to complete this topic HPV Vaccines Aged Out No longer eligi ble based on patient's age to complete this topic Hepatitis A Vaccines Aged Out No long er eligible based on patient's age to complete this topic Hepatitis B Vaccines Aged Out No long er eligible based on patient's age to complete this topic IPV Vaccines Aged Out No longer eligi ble based on patient's age to complete this topic MMR Vaccines Aged Out No longer eligi ble based on patient's age to complete this topic Meningococcal ACWY Vaccine Aged Out N o longer eligible based on patient's age to complete this topic RSV Immunization Patients Under 20 months Aged Out No longer eligible based on patient's age to complete this topic Varicella Vaccines Aged Out No longer eligible based on patient's age to complete this topic Procedures Procedure Name Priority Date/Time Associated Diagnosis Comments XR FINGERS 2+ VIEWS RIGHT Routine 05/26/2024 11:[address] LUNG SCREENING LOW DOSE Routine 10/28/2023 2:49 PM EDT Atherosclerotic heart disease of [place] coronary artery without angina pectoris from Last 3 Months or Most Recently Relevant to Health Maintenance Results * XR Fingers 2+ Views Right (05/26/2024 11:03 AM EST) Anatomical Region Laterality Modality Upper Extremities, Fingers Right Compu kat Radiography Narrative 05/27/2024 3:29 PM EST AP, lateral, oblique of the right thumb ray was obtained on 05/26/2024. ?? There are no other images to compare to. ??Bone is notably osteopenic. ??At the thumb he has some sclerosis at the MCP joints. ??He has basal joint arthritis with some subluxation, sclerosis, loss of joint space, subchondral cyst formation, and also some marginal osteophytes. ??There are no obvious fractures. Impression: Basal joint arthritis right thumb Paige Irving MD IMG XR PROCEDURES * CT LUNG SCREENING LOW DOSE (10/28/2023 2:49 PM EDT) Anatomical Region Laterality Modality Computed Tomogra phy 10/25/2023 11:3 1 AM EDT Narrative 10/28/2023 2:49 PM EDT [facility] Diagnostic Imaging Department [address] [place], [place] [id number] Patient: ??BARBARA CID ?/Age/Sex: 1950 - 73 - M Unit#: ??[id number] ? Location/Status: ??SPDICATLS/REG CLI ? Mnemonic/Ordering Site: ??CTLUNGLD/SPCT Ordering Physician: ??ARUN ANDRES MD CT Lung Screening Low Dose - 10/25/23 - 1138 Report Status:Signed History: ??73 year-old 72 pack-year former smoker, asymptomatic, for lung cancer screening. Quit smoking 9 years ago. Known coronary artery disease. Sibling had lung carcinoma. Comparison: 10/22/22 Technique: Helical volumetric imaging of the thorax was performed, using low- dose technique, without IV contrast. DLP: 102.48 mGy/cm ??CTDIvol: 2.85 mGy VectorMAXer Iterative reconstruction technique Findings: Lungs and Airways: The trachea and central bronchial tree remain patent. Diffuse bronchial wall thickening is consistent with bronchitis in this setting, unchanged. Paraseptal and centrilobular emphysema are again noted. Thin bandlike opacity at the lung bases is consistent with subsegmental atelectasis. A 7 x 3 mm solid, noncalcified nodule in the right middle lobe (image 143 series 3) is unchanged. A 4 mm solid, noncalcified nodule is unchanged in the left lower lobe (image 167). There are rare homogeneously calcified nodules consistent with old granulomatous disease. No suspicious developing nodule is seen. Pleura: No pleural or pericardial effusions are identified. Base of neck, mediastinum and heart: The heart remains normal in size. Three- vessel coronary artery calcification is again noted. No developing thoracic lymphadenopathy is seen Soft tissues: . The overlying soft tissues are unremarkable. Abdomen: This study was performed without contrast and with lower than standard dose. These factors reduce the sensitivity for detection of small lesions in the upper abdomen. Cholecystectomy sequelae are noted. Impression: No suspicious developing pulmonary nodule. No significant change. Lung RADS 2: Benign Appearance or Behavior - Continue annual screening with LDCT in 12 months. [id number] [id number] [id number] Dictating Physician: ??AMRITA HOLT MD Electronically Signed by: ??AMRITA HOLT MD Dic Date/Time: ??10/28/23 1431 Sign date/Time: ??10/28/23 1449 Procedure Note Amrita Holt MD - 02/12/2024 [facility] Diagnostic Imaging Department [address] [place] [address] Patient: BARBARA CID /Age/Sex: 1950 - 73 - M Unit#: [id number] Location/Status: SPDICATLS/REG CLI Mnemonic/Ordering Site: CTLUNGLD/SPCT Ordering Physician: ARUN ANDRES MD CT Lung Screening Low Dose - 10/25/23 - 1138 Report Status:Signed History: 73 year-old 72 pack-year former smoker, asymptomatic, for lungcancer screening. Quit smoking 9 years ago. Known coronary artery disease.Sibling had lung carcinoma. Comparison: 10/22/22 Technique: Helical volumetric imaging of the thorax was performed, usinglow- dose technique, without IV contrast. DLP: 102.48 mGy/cm CTDIvol: 2.85 mGy VectorMAXer Iterative reconstruction technique Findings: Lungs and Airways: The trachea and central bronchial tree remain patent. Diffuse bronchial wall thickening is consistent with bronchitis in thissetting, unchanged. Paraseptal and centrilobular emphysema are again noted. Thinbandlike opacity at the lung bases is consistent with subsegmental atelectasis. A 7 x 3 mm solid, noncalcified nodule in the right middle lobe (hivjp152 series 3) is unchanged. A 4 mm solid, noncalcified nodule is unchanged inthe left lower lobe (image 167). There are rare homogeneously calcifiednodules consistent with old granulomatous disease. No suspicious developing nodule is seen. Pleura: No pleural or pericardial effusions are identified. Base of neck, mediastinum and heart: The heart remains normal in size.Three- vessel coronary artery calcification is again noted. No developingthoracic lymphadenopathy is seen Soft tissues: . The overlying soft tissues are unremarkable. Abdomen: This study was performed without contrast and with lower thanstandard dose. These factors reduce the sensitivity for detection of small lesionsin the upper abdomen. Cholecystectomy sequelae are noted. Impression: No suspicious developing pulmonary nodule. No significant change. Lung RADS 2: Benign Appearance or Behavior - Continue annual screeningwith LDCT in 12 months. [id number] [id number] [id number] [id number] Dictating Physician: AMRITA HOLT MD Electronically Signed by: AMRITA HOLT MD Dic Date/Time: 10/28/23 1431 Sign date/Time: 10/28/23 1449 Arun Andres MD IMG CT PROCEDURES from Last 3 Months or Most Recently Relevant to Health Maintenance Care Teams Sewer Connector Relationship Specialty Start Date End Date Ian Carney MD [address] [address] PCP - General 06/07/17
--- OUTSIDE RECORDS SUMMARY | 2024-06-03 09:45 | XMS_ITS | Encounter Summary ---
Author Organization [facility] Address [address] [place] [address] Care Team Providers Care Quality Assurance Auditor Name Role Phone Ian Carney MD Primary Care Provider Reason for Visit * Reason Comments Consult pain * Consultation (Routine) - Closed Specialty Diagnoses / Procedures Referred By Contac t Referred To Contact Orthopaedic Surgery Diagnoses Pain of right thumb Procedures AMB Referral to Hand Surgeon. Ian Carney MD [facility] [address] [address] Paige Irving MD [address] [address] Referral ID Status Reason Start Date Expiration Date V isits Requested Visits Authorized [id number] Closed Consult and Treat 02/27/2024 02/26/2025 1 1 Encounter Details Date Type Department Care Team (Latest Contact Info) Description 05/26/2024 10:30 AM EST Office Visit Orthopedic Surgery - [place] [address] [address] Paige Irving MD [address] [address] Arthritis of carpometacarpal (CMC) joint of right thumb (Primary Dx) Social History Tobacco Use Types Packs/Day Years [...] file Not on file Not on file documented as of this encounter Last Filed Vital Signs Vital Sign Reading Time Taken Comments Blood Pressure - - Pulse - - Temperature - - Respiratory Rate - - Oxygen Saturation - - Inhaled Oxygen Concentration - - Weight 83.9 kg (185 lb) 05/26/2024 10:24 AM EST Height 180.3 cm (5' 11 ) 05/26/2024 10:24 AM EST Body Mass Index 25.8 05/26/2024 10:24 AM EST documented in this encounter Progress Notes * Paige Irving MD - 05/26/2024 10:30 AM EST CHIEF COMPLAINT/REASON FOR VISIT: Right thumb pain SUBJECTIVE: Patient is a 73-year-old gentleman who presents with several month history of some pain in his right thumb. He is left-hand dominant. There was no trauma. Late summer he developed some locking and catching in the right thumb. It eventually went away but the pain seemed to drift down the thumb and he reports pain now at the MP and CMC levels where he points. He finds it is hard to press down on things opening a jar is very painful. He has had no formal treatment for this. He is not having any numbness or tingling. OBJECTIVE: On exam the patient is neurovascular intact. He has some prominence of the basal joint on the rightwith some swelling that is not present on the left. He is able to flex and extend the IP joints bilaterally as well as the MP joints and he can circumduct the thumbs. He is neurovascular intact and has negative Tinel's and Phalen's. He is able to flex and extend the other fingers and he can flex and extend both wrists. But he does have some tenderness when I palpate at the MP joint. There is no synovitis or instability. Most of the pain is recreated with palpation of the basal joint on the right side he has some crepitance. This is not present on the left. XR Fingers 2+ Views Right AP, lateral, oblique of the right thumb ray was obtained on 05/26/2024. There are no other images to compare to. Bone is notably osteopenic. At the thumb he has some sclerosis at the MCP joints. He has basal joint arthritis with some subluxation, sclerosis, loss of joint space, subchondral cyst formation, and also some marginal osteophytes. There are no obvious fractures. Impression: Basal joint arthritis right thumb ASSESSMENT: 1. Arthritis of carpometacarpal (CMC) joint of right thumb Patient has significant arthritis of the basal joint on the right. I went over the x-rays with him.We talked about treatment options. I am afraid there is no cure for this but basically we can suggest the management strategies. This usually involves use of the splint, some analgesics, occasional steroid injections, and in some instances there is a surgery where we actually take part of the bone out. Right now the patient does have a CMC splint. He has not yet ready to have anything more aggressive done. He will consider whether the come back for injection at some point. We talked about just some general management strategies with activities. Patient's questions were answered. He will return and see us on a as needed basis. Paige Irving MD Patient Active Problem List Diagnosis GERD (gastroesophageal reflux disease) Cluster headaches Gout Hearing loss, left Lumbar disc herniation Tubular adenoma of colon Asthma-COPD overlap syndrome (CMS/HCC) Arthritis of carpometacarpal (CMC) joint of right thumb Current Outpatient Medications: atorvastatin (LIPITOR) 10 mg tablet, Take 1 tablet (10 mg total) by mouth 1 (one) time each day., Disp: , Rfl: oxyCODONE (ROXICODONE) 5 mg immediate release tablet, TAKE 1 TAB BY MOUTH EVERY 4 HOURS NEEDED FOR PAIN. DX: PAIN (722.80)., Disp: , Rfl: Trelegy Ellipta 100-62.5-25 mcg inhaler, INHALE 1 PUFF INTO THE LUNGS DAILY FOR 30 DAYS., Disp: , Rfl: documented in this encounter Plan of Treatment Not on file documented as of this encounter Visit Diagnoses Diagnosis Arthritis of carpometacarpal (CMC) joint of right thumb- Primary documented in this encounter Historical Medications * This list may reflect changes made after this encounter. Medication Sig Dispensed Refills Start Date End Date oxyCODONE (ROXICODONE) 5 mg immediate release tablet TAKE 1 TAB BY MOUTH EVERY 4 HOURS NEEDED FOR PAIN. DX: PAIN (722.80). Trelegy Ellipta 100-62.5-25 mcg inhaler INHALE 1 PUFF INTO THE LUNGS DAILY FOR 30 DAYS. atorvastatin (LIPITOR) 10 mg tablet Take 1 tablet (10 mg total) by mouth 1 (one) time each day. added in this encounter Care Teams Quality Assurance Auditor Relationship Specialty Start Date End Date Ian Carney MD [address] [address] PCP - General 06/07/17 documented as of this encounter
[2024-06-03 13:06] LABS: MANUAL DIFF FLAG NO
[2024-06-03 13:13] LABS: Basophils Absolute Auto 0.1 X10*3/uL (0.0-0.2); Basophils Percent Auto 1.4 % (0-2); Eosinophils Absolute Auto 0.3 X10*3/uL (0.0-0.4); Eosinophils Percent Auto 4.6 % (0-4); Hematocrit 42.8 % (42.0-52.0); Hemoglobin 14.5 g/dl (14.0-18.0); Imm Gran Abs Auto 0.02 X10*3/uL (0.00-0.03); Imm Gran Pct Auto 0.3 % (0.0-0.4); Lymphocytes Absolute Auto 1.2 X10*3/uL (1.2-4.9); Lymphocytes Percent Auto 20.3 % (20-40); Mean Corpuscular HGB Conc 33.9 g/dl (31.0-36.0); Mean Corpuscular Hemoglobin 32.1 pg (27.0-33.0); Mean Corpuscular Volume 94.7 fL (80.0-98.0); Mean Platelet Volume 9.7 fL (9.4-12.4); Monocytes Absolute Auto 0.6 X10*3/uL (0.1-1.2); Neutrophils Absolute Auto 3.8 x10*3/uL (2.0-8.3); Neutrophils Percent Auto 63.4 % (45-73); Platelet Count 189 X10*3/uL (160-400); Red Blood Count 4.52 X10*6/uL (4.60-5.80); Red Cell Distribution Width 12.6 % (11.0-16.0); White Blood Count 5.9 X10*3/uL (4.8-10.8)
[2024-06-03 13:33] LABS: Alanine Aminotransferase 64 U/L (0-40); Albumin Level 4.1 g/dL (3.5-5.0); Alkaline Phosphatase 110 U/L (39-117); Anion Gap 9 (12-20); Aspartate Amino Transferase 45 U/L (5-37); Bilirubin Total 0.7 mg/dL (0.0-1.0); Blood Urea Nitrogen 14 mg/dL (9-16); Carbon Dioxide 28 mmol/L (22-29); Chloride 104 mmol/L (96-108); Cholesterol 183 mg/dL (<200); Estimated Glomerular Filt Rate > 60; Glucose Fasting 108 mg/dL (60-99); HDL Cholesterol 67 mg/dL (>40); LDL Cholesterol Calculated 101 mg/dL (<100); Sodium 137 mmol/L (135-145); Total Protein 7.4 g/dL (6.5-8.0); Triglycerides 78 mg/dL (<150)
[2024-06-03 13:44] LABS: Prostate Specific Antigen 0.39 ng/mL (<0.05-4.0)
== END 2024-06-03 09:22 | disposition home or self-care (01) ==
LOC: HO.HMGCLDS 09:21
PROVIDERS: PCP Internal Medicine Medical Oncology; Visit Provider Internal Medicine Medical Oncology
DX: Z12.5 Encounter for screening for malignant neoplasm of prostate (principal); E66.3 Overweight; N40.0 Benign prostatic hyperplasia without lower urinary tract symptoms
CPT/HCPCS: 36415; 80053; 80061; 84153; 85025

== ENCOUNTER 2024-10-02 10:13 | Outpatient (REF) | payer MEDICARE, SELFPAY ==
--- OUTSIDE RECORDS SUMMARY | 2024-10-02 10:59 | XMS_ITS ---
Author Organization Ian Carney III, MD Address [address] [place] [address] [place] [address] Care Team Providers Care Film Splicer Name Role Phone Ian Carney Primary Care Provider [phone] REASON FOR VISIT Aortic aneurysm tests Social History Sex Assigned At : Social History Observation Description Sex Assigned At Male Encounters Encounter Location Date Provider Diagnosis Ian Carney III, MD [address] [place] [address] [place] [address] 04/20/2024 Ian Carney Plan Of Treatment Next Appt Details Provider Name:Ian Carney, 10/08/2024 11:00:00 AM, [address] [place] [address] [place], [address], Progress Notes * AMANDEEPMiguel WESTDOB: 3 (73 yo M)Acc No.[id number]:04/20/2024 Patient:?Miguel GROSS :1950???Age:73 Y???Sex:Male Address:[address] [place] [address] [place] [address] * true * Date:? Generated for Printi ng/Faxing/eTransmitting on:?10/02/2024 10:59 AM EDT
[2024-10-02 13:17] LABS: MANUAL DIFF FLAG NO
[2024-10-02 13:32] LABS: Basophils Absolute Auto 0.1 X10*3/uL (0.0-0.2); Basophils Percent Auto 1.4 % (0-2); Eosinophils Absolute Auto 0.6 X10*3/uL (0.0-0.4); Eosinophils Percent Auto 11.1 % (0-4); Hematocrit 41.8 % (42.0-52.0); Hemoglobin 14.4 g/dl (14.0-18.0); Imm Gran Abs Auto 0.02 X10*3/uL (0.00-0.03); Imm Gran Pct Auto 0.4 % (0.0-0.4); Lymphocytes Absolute Auto 1.2 X10*3/uL (1.2-4.9); Lymphocytes Percent Auto 21.5 % (20-40); Mean Corpuscular HGB Conc 34.4 g/dl (31.0-36.0); Mean Corpuscular Hemoglobin 32.4 pg (27.0-33.0); Mean Corpuscular Volume 94.1 fL (80.0-98.0); Monocytes Absolute Auto 0.5 X10*3/uL (0.1-1.2); Monocytes Percent Auto 8.4 % (2-11); Neutrophils Absolute Auto 3.2 x10*3/uL (2.0-8.3); Neutrophils Percent Auto 57.2 % (45-73); Platelet Count 195 X10*3/uL (160-400); Red Blood Count 4.44 X10*6/uL (4.60-5.80); Red Cell Distribution Width 12.4 % (11.0-16.0); White Blood Count 5.6 X10*3/uL (4.8-10.8)
[2024-10-02 14:33] LABS: Alanine Aminotransferase 60 U/L (0-40); Albumin Level 4.2 g/dL (3.5-5.0); Alkaline Phosphatase 116 U/L (39-117); Anion Gap 8 (12-20); Aspartate Amino Transferase 51 U/L (5-37); Blood Urea Nitrogen 12 mg/dL (9-16); Calcium 9.8 mg/dL (8.4-10.2); Carbon Dioxide 30 mmol/L (22-29); Chloride 105 mmol/L (96-108); Cholesterol 174 mg/dL (<200); Estimated Glomerular Filt Rate > 60; Glucose Fasting 114 mg/dL (60-99); HDL Cholesterol 61 mg/dL (>40); LDL Cholesterol Calculated 97 mg/dL (<100); Sodium 139 mmol/L (135-145); Total Protein 7.1 g/dL (6.5-8.0); Triglycerides 80 mg/dL (<150)
== END 2024-10-02 10:14 | disposition home or self-care (01) ==
LOC: HO.HMGCLDS 10:13
PROVIDERS: PCP Internal Medicine Medical Oncology; Visit Provider Internal Medicine Medical Oncology
DX: E78.5 Hyperlipidemia, unspecified (principal); J45.909 Unspecified asthma, uncomplicated; K21.9 Gastro-esophageal reflux disease without esophagitis
CPT/HCPCS: 36415; 80053; 80061; 85025

== ENCOUNTER 2024-10-27 13:51 | Outpatient (REF) | payer MEDICARE, SELFPAY ==
--- OUTSIDE RECORDS SUMMARY | 2024-10-27 09:00 | XMS_ITS ---
Author Organization Ian Carney III, MD Address [address] [place] [address] [place] [address] Care Team Providers Care [employer] Attendant Name Role Phone Ian Carney Primary Care Provider [phone] Allergies Allergen (clinical drug ingredient) Drug/Non Drug Allergy documented on EMR Reaction Allergy Type Onset Date Status codeine Codeine Unknown Drug Allergy Active Results Component Value Reference Range Notes URINE DIP STICK Reviewed date:10/27/2024 02:35:51 PM Interpretation: Performing Lab: Notes/Report: SG 1.010 1.005 - 1.025 pH 5.0 5.0 - 9.0 CHIQUITA Negative Negative - NIT Negative Negative - PRO 15 Negative - Trace GLU Negative Negative - KET Negative Negative - UBG 0.2 0.1 - 1.8 NEHA Negative 0.2 - 1.3 BLD 5-10 Negative - REASON FOR VISIT Acute abdominal pain lasted 45 minutes on 10/17/2024 and 10/23/24, Slight fever taking Ibuprofen and acetaminofen since 10/25/2024 Medications Medication SIG (Take, Route, Frequency, Duration) Notes Start Date End Date Status Albuterol Sulfate HFA 108 (90 Base) MCG/ACT 2 puffs as needed Inhalation every 4 hrs 08/31/2016 Active Trelegy Ellipta 100-62.5-25 MCG/INH 1 puff Inhalation Once a day Active Laxative 5 MG 1 tablet as needed Orally Once a day Active B6 Natural 100 MG 1 tablet Orally Once a day Active Famotidine 20 MG 1 tablet at bedtime as needed Orally Once a day Active ProAir HFA 108 (90 Base) MCG/ACT 2 puffs as needed Inhalation every 4 hrs Active oxyCODONE HCl 5 MG 1 tablet as needed Orally every [address] Gee PSSS Active Tamsulosin HCl 0.4 MG TAKE 1 CAPSULE BY MOUTH EVERY DAY FOR 30 DAYS Active Atorvastatin Calcium 10 MG TAKE 1 TABLET BY MOUTH EVERY DAY Active Social History Tobacco Use: Social History Observation Description Date Details (start date - stop date) Former Smoker NA - NA Sex Assigned At : Social History Observation Description Sex Assigned At Male Tobacco Control (Standard) Question Answer Notes Tobacco use: Former smoker How long has it been since you last smoked? Sherrie ter than 10 years Additional Findings: Tobacco non-user Ex-cigaret te smoker Vital Signs Temperature 98.8 degrees Fahrenheit 10/28/19 25 Blood pressure systolic 147 mm Hg 10/28/19 25 Blood pressure diastolic 81 mm Hg 025 Heart Rate 90 /min 10/27/2024 Height 72 in 10/27/2024 Weight 188 lbs 10/27/2024 BMI 25.49 kg/m2 10/27/2024 Encounters Encounter Location Date Provider Diagnosis Ian Carney III, MD [address] [place] [address] [place] [address] 10/27/2024 Ian Carney Epigastric abdominal pain R10.13 ; Ureterolithiasis N20.1 ; GERD (gastroesophageal reflux disease) K21.9 and Hematuria R31.9 Assessments Encounter Date Diagnosis (ICD Code) Assessment Notes Treat ment Notes Treatment Clinical Notes 10/27/2024 Epigastric abdominal pain (ICD-10 - R10.13) 10/27/2024 Ureterolithiasis (ICD-10 - N20.1) 10/27/2024 GERD (gastroesophage al reflux disease) (ICD-10 - K21.9) 10/27/2024 Hematuria (ICD-10 - R31.9) Plan Of Treatment Medication Medication Name Sig Start Date Stop Date Notes Albuterol Sulfate HFA 108 (90 Base) MCG/ACT 2 puffs as needed Inhalation every 4 hrs 08/31/2016 Trelegy Ellipta 100-62.5-25 MCG/INH 1 puff Inhalation Once a day Laxative 5 MG 1 tablet as needed Orally Once a day B6 Natural 100 MG 1 tablet Orally Once a day Famotidine 20 MG 1 tablet at bedtime as needed Orally Once a day ProAir HFA 108 (90 Base) MCG/ACT 2 puffs as needed Inhalation every 4 hrs oxyCODONE HCl 5 MG 1 tablet as needed Orally every [address] Gee PSSS Tamsulosin HCl 0.4 MG TAKE 1 CAPSULE BY MOUTH EVERY DAY FOR 30 DAYS Atorvastatin Calcium 10 MG TAKE 1 TABLET BY MOUTH EVERY DAY Pending Test Test Name Order Date PROFILE, RANDOM (COMPREHENSIVE METABOLIC ) 10/27/2024 GGT 10/27/2024 CBC w DIFF 10/27/2024 SED RATE (ESR) 10/27/2024 US ABD 10/27/2024 Next Appt Details Follow Up: 1 Week, Reason: o v review labs/US done at Provider Name:Ian Carney, 11/03/2024 01:15:00 PM, [address] [place] [address] [address], [place], [address], Provider Name:Ian Carney, 02/11/2025 11:00:00 AM, [address] [place] [address] [address], [place], [phone], Provider Name:Ian Carney, 10/11/2025 11:00:00 AM, [address] [place] [address] [address], [place], [address], Progress Notes * Miguel GROSSDOB: [birth year] (74 yo M)Acc No.[id number]:10/27/2024 Progress Notes Patient: Miguel REID Provider: Yaakov Carney MD :1950 A ge:74 Y S ex:Male Date:10/27/2024 Address:[address] [place] [address] [address], [id number] Subjective: * Chief Complaints: * 1 . Acute abdominal pain lasted 45 minutes on 10/17/2024 and 10/23/24. 2. Slight fever taking Ibuprofen and acetaminofen since 10/25/2024. * HPI: C OVID-19 Screenin/21 before breakfast abd ain and lightheaded mid abd 45 min, same on the 45 min, no nvd stools are constipated, was on a laxative, scared dad of gib. Questions H ave you had any new onset fever, chills, cough, congestion, sore throat, shortness of breath, muscle aches? Y es Patient states he has had a low grade fever for 2x days. patient states could be related to stomach issue he is having * ROS: G eneral/Constitutional: pain o nly normal aches and pains. C hills d enies.?Fatigue a dmits. F ever d enies. E NT: Decreased hearing d enies. R espiratory: Cough d enies. C ardiovascular: Chest pain with exertion d enies. D yspnea on exertion?denies. S hortness of breath d enies. G astrointestinal: Constipation d enies. D ecreased appetite d enies.?Diarrhea d enies. H eartburn d enies. N ausea d enies. R ectal bleeding?denies. V omiting d enies. H ematology: bruising d enies. p etechiae d enies. S wollen glands n one have been noted. G enitourinary: Frequent urination d enies. M usculoskeletal: Muscle aches d enies. P ainful joints d enies. S ciatica d enies. W eakness d enies. S kin: Itching d enies. R aileen d enies. S kin lesion(s)?denies. N eurologic: Difficulty speaking d enies. D izziness d enies.?Headache d enies. L ow back pain d enies. P sychiatric: Depressed mood d enies. * Medical History: C luster headaches, Hyperlipidemia, Back pain, Gerd, Cholelithiasis, Left hearing loss, Ulcers, 1977 HNP lumbar spine, Colonic tubular adenoma, Right shoulder pain, Gout. * Surgical History: c holecysectomy 2009, LS spine surgery , colonoscopy 1998, 2002, 2007 , No history . * Hospitalization/Major Diagno stic Procedure: N o history . * Family History: F ather: 60 yrs, Parkinsons,pneuonia. M other: 93 yrs, glaucoma. S pouse: alive 61 yrs. 3 brother(s) , 3 sister(s) . 1 son(s) - healthy. . His sister has atrial fibrillation and cardiac bypass surgery. A brother, Beau, had a right leg amputation for PVD. Brother Ian had brain cancer, . Aortic aneurysms. * Social History: T obacco Use: T obacco Control (Standard) T obacco use: F ormer smoker H ow long has it been since you last smoked??Greater than 10 years A dditional Findings: Tobacco non-user E x-cigarette smoker H john is and is from his , Jacqueline. He is disabled. He completed the ninth grade. He was born in [place]. * Medications: T aking Atorvastatin Calcium 10 MG Tablet TAKE 1 TABLET BY MOUTH EVERY DAY , Taking Tamsulosin HCl 0.4 MG Capsule TAKE 1 CAPSULE BY MOUTH EVERY DAY FOR 30 DAYS , Taking oxyCODONE HCl 5 MG Tablet 1 tablet as needed Orally every 4 hrs , Notes to Pharmacist: Dr Gee PSSS, Taking ProAir HFA 108 (90 Base) MCG/ACT Aerosol Solution 2 puffs as needed Inhalation every 4 hrs , Taking Famotidine 20 MG Tablet 1 tablet at bedtime as needed Orally Once a day , Taking B6 Natural 100 MG Tablet 1 tablet Orally Once a day , Taking Laxative 5 MG Tablet Delayed Release 1 tablet as needed Orally Once a day , Taking Trelegy Ellipta 100-62.5-25 MCG/INH Aerosol Powder Breath Activated 1 puff Inhalation Once a day , Taking Albuterol Sulfate HFA 108 (90 Base) MCG/ACT Aerosol Solution 2 puffs as needed Inhalation every 4 hrs , Medication List reviewed and reconciled with the patient * Allergies: C odeine: Allergy. Objective: * Vitals: H t: 72, Wt:188, BMI:25.49, BP:147/81, HR:90, Temp:98.8, Wt-k.28. * Examination: G eneral Examination: GENERAL APPEARANCE: p leasant, well nourished, well developed, in no acute distress, calm and relaxed. HEAD: a traumatic, normocephalic. EYES: e belen, perrla, anicteric, conjugate. EARS: n ormal. NOSE: s eptum intact. ORAL CAVITY: n ormal, unremarkable. NECK/THYROID: n o jugular venous distention, no carotid bruit, thyroid normal. LYMPH NODES: n o enlarged lymph nodes,spleen normal. SKIN: n o suspicious lesions, anicteric. HEART: n o clicks, gallops, murmurs, or rubs, regular rhythm, S1, S2 normal, no s3, or vascular bruits. LUNGS: c lear to auscultation . BREASTS: no masses palpable bilaterally. ABDOMEN: b owel sounds normal, no ascites, no organomegaly, no mass. RECTAL EXAM: n ot examined. MUSCULOSKELETAL: e xtremities unremarkable, no clubbing, cyanosis or edema. PERIPHERAL PULSES: n ormal. NEUROLOGIC: a lert and oriented, cranial nerves 2-12 grossly intact, deep tendon reflexes 2+ symmetrical, motor strength normal upper and lower extremities, sensory exam intact. PSYCH: a lert, oriented. Assessment: * Assessment: 1. H ematuria - R31.9 (Primary) 2 . E pigastric abdominal pain - R10.13? 3. U reterolithiasis - N20.1 4 . G ERD (gastroesophageal reflux disease) - K21.9 Plan: * Treatment: Value Reference Range S G 1.010 1.005 - 1.025 * p H 5.0 5.0 - 9.0 * L EU Negative Negative - * N IT Negative Negative - * P RO 15 Negative - Trace * G MAYKEL Negative Negative - * K ET Negative Negative - * U BG 0.2 0.1 - 1.8 * B IL Negative 0.2 - 1.3 * B LD 5-10 Negative - 2.?Epigastric abdominal pain?LAB: PROFILE, RANDOM (COMPREHENSIVE METABOLIC) ?LAB: GGT ?LAB: CBC w DIFF ?LAB: SED RATE (ESR) ?Imaging: US ABD3.?Ureterolithiasis?LAB: PROFILE, RANDOM (COMPREHENSIVE METABOLIC) ?LAB: GGT ?LAB: CBC w DIFF ?LAB: SED RATE (ESR) ?Imaging: US ABD4.?GERD (gastroesophageal reflux disease)?LAB: PROFILE, RANDOM (COMPREHENSIVE METABOLIC) ?LAB: GGT ?LAB: CBC w DIFF ?LAB: SED RATE (ESR) ?Imaging: US ABD5.?Others? Continue Atorvastatin Calcium Tablet, 10 MG, TAKE 1 TABLET BY MOUTH EVERY DAY;?Continue Tamsulosin HCl Capsule, 0.4 MG, TAKE 1 CAPSULE BY MOUTH EVERY DAY FOR 30 DAYS;?Continue oxyCODONE HClTablet, 5 MG, 1 tablet as needed, Orally, every 4 hrs, Notes to Pharmacist: Dr Gee PSSS;?Continue ProAir HFA Aerosol Solution, 108 (90 Base) MCG/ACT, 2 puffs as needed, Inhalation, every 4 hrs; ?Continue Famotidine Tablet, 20 MG, 1 tablet at bedtime as needed, Orally, Once a day;?Continue B6 Natural Tablet, 100 MG, 1 tablet, Orally, Once a day;?Continue Laxative Tablet Delayed Release, 5 MG, 1 tablet as needed, Orally, Once a day;?Continue Trelegy Ellipta Aerosol Powder Breath Activated, 100-62.5-25 MCG/INH, 1 puff, Inhalation, Once a day;?Continue Albuterol Sulfate HFA Aerosol Solution, 108 (90 Base) MCG/ACT, 2 puffs as needed, Inhalation, every 4 hrs.? * Procedure Codes: 8 1002 URINE-NO MICRO * Follow Up: 1 Week (Reason: ov review labs/US done at ) * Images: * The named appointment provid er may or may not be the originator of this progress note, and it is not deemed complete until electronically signed by the appointment provider. Sign off status: Pending * Provider: Yaakov Carney MD Date: 10/27/2024 Generated for Anahi abebe/Kaushal/Divinaitting on: 10/27/2024 03:01 PM EDT History and Physical Notes * HPI (History of Present Illness) Category Sub-Category Detail Notes COVID-19 Screening Questions Have you had any new onset fever, chills, cough, congestion, sore throat, shortness of breath, muscle aches?: Yes Patient states he has had a low grade fever for 2x days. patient states could be related to stomach issue he is having Examination Category Sub-Category Detail Notes General Examination GENERAL APPEARANCE: pleasant , well nourished, well developed, in no acute distress, calm and relaxed HEAD: atraumatic, normocep halic EYES: eomi, perrla, anicte andrew, conjugate EARS: normal NOSE: septum intact NECK/THYROID: no jugular venous di stention, no carotid bruit, thyroid normal HEART: no clicks, gallops, murmurs, or rubs, regular rhythm, S1, S2 normal, no s3, or vascular bruits LUNGS: clear to auscultatio n ABDOMEN: bowel sounds normal, no ascites, no organomegaly, no mass NEUROLOGIC: alert and oriented, cranial nerves 2-12 grossly intact, deep tendon reflexes 2+ symmetrical, motor strength normal upper and lower extremities, sensory exam intact SKIN: no suspicious lesion s, anicteric PERIPHERAL PULSES: normal BREASTS: no masses palpable b ilaterally MUSCULOSKELETAL: extremities unremark able, no clubbing, cyanosis or edema LYMPH NODES: no enlarged lymph no pati,spleen normal RECTAL EXAM: not examined PSYCH: alert, oriented ORAL CAVITY: normal, unremarkable
[2024-10-27 14:01] LABS: MANUAL DIFF FLAG NO
--- OUTSIDE RECORDS SUMMARY | 2024-10-27 15:01 | XMS_ITS | Patient Health Record ---
Author Organization [facility] Address [address] [place] [address] Care Team Providers Care Combination Man Name Role Phone Ian Carney MD Primary Care Provider UnavailIan Trejo Unavailable [phone] Allergies Allergen (clinical drug ingredient) Drug/Non Drug Allergy documented on EMR Reaction Allergy Type Onset Date Status Codeine Phosphate Unknown Drug Allergy Active Results Component Value Reference Range Notes Pathology (Not yet reviewed by provider) Interpretation: Performing Lab:[facility], [address] [place] [phone] Notes/Report: Reason For Referral No Information Medications Medication SIG (Take, Route, Frequency, Duration) Notes Start Date End Date Status Famotidine 10 MG 1 tablet as needed O rally Twice a day Active Atorvastatin Calcium 10 MG 1 tablet Oral ly Once a day for 30 day(s) Active Vitamin B Complex w/B-12 - as directed Orally Active Colace 100 MG 1 capsule as needed Orally Once a day for 30 day(s) Active oxyCODONE HCl 5 mg 1 QID for back pain Active Benadryl Active Trelegy Ellipta 100-62.5-25 MCG/ACT 1 puff Inhalation Once a day Active Immunizations Vaccine Route Administration Date Status Comme nts Influenza Unknown 02/19/2023 Administered Social History Tobacco Use: Social History Observation Description Date Details (start date - stop date) Former Smoker NA - NA Tobacco Use/Smoking Question Answer Notes Patient is a former smoker Section Notes: Smoker; 4 beers per day Nonsmoker; 4 beers per day Problems Problem Type SNOMED Code ICD Code Onset Dates Problem Status W/U Status Risk Notes Problem Colon cancer screening (727041328) Colon cancer screening (Z12.11) Active confirmed Problem History of polyp of colon (situation) (685549034) Personal history of colonic polyps (Z86.010) Active confirmed Problem Pre-procedure evaluation check (635598749) Encounter for other preprocedural examination (Z01.818) Active confirmed Problem Diverticulosis o f large intestine without perforation or abscess without bleeding (K57.30) Active confirmed Encounters Encounter Location Date Provider Diagnosis [facility] [place], [place] Outpatient [address] [place] [phone] 01/03/2024 Ian Cronin Colon cancer scree antonio Z12.11 ; Colon polyps K63.5 ; Rectal polyp K62.1 ; Diverticulosis of large intestine without perforation or abscess without bleeding K57.30 and Other hemorrhoids K64.8 Assessments Encounter Date Diagnosis (ICD Code) Assessment Notes Treatment Notes Treatment Clinical Notes Section Notes 01/03/2024 Colon cancer screening (ICD-10 - Z12.11) 01/03/2024 Colon polyps (ICD-10 - K63.5) 01/03/2024 Rectal polyp (ICD-10 - K62.1) 01/03/2024 Diverticulosis of large intestine without perforation or abscess without bleeding (ICD-10 - K57.30) 01/03/2024 Other hemorrhoids (ICD-10 - K64.8) Plan Of Treatment Pending Test Test Name Order Date Pathology 01/03/2024 Future Test Test Name Order Date COLONOSCOPY 02/10/2013 COLONOSCOPY 09/19/2023 Insurance Providers Payer Name Payer Address Payer Phone Subscriber Number Group Number Insured Name Patient Relationship to Insured Coverage Start Date Coverage End Date [facility] [address] [place], [place] [id number] BARBARA GROSS Self - patient is the insured Medical (General) History Medical History History ICD Code Colon polyps-> 1.0 cm Tubula r adenoma removed in 1998--neg colonoscopy in 2002 and 2007 except diverticulosis and hemorrhoids Hyperlipidemia GERD-EGD in 1998 with mild r eflux and gastritis with H.pylori(not treaeted)-on Famotidine OTC Denies OR,DM,CVA,renal disease Back pain--receives epidurals--he is cur rently on oxycodone Negative screening colonoscopy in 04/2013 COPD Kidney stone Surgical History Surgery Date(Month/Year) BACK SURGERY FOR DISC DISEASE [facility]
--- OUTSIDE RECORDS SUMMARY | 2024-10-27 15:01 | XMS_ITS | Clinical Summary ---
Author Organization 175 [facility] Address [address] [place] [address] Phone Care Team Providers Care Label Sewer Name Role Phone Ian Carney MD Primary Care Provider [phone] Allergies Active Allergy Reactions Criticality Noted Date Comments Codeine Nausea And Vomiting 06/28/2017 Medications atorvastatin (LIPITOR) 10 mg tablet Take 1 [...] adenoma of colon 08/21/2017 Asthma-COPD overlap syndrome (CMS/HCC V24, CMS/H CC V28) 08/21/2017 Encounters Date Type Department Care Team Description 10/25/2024 9:01 AM EDT - 10/25/2024 11:59 PM EDT Hospital Encounter [facility] CT Scan [address] [place] [address] Encounter for screening for malignant neoplasm of respiratory organs; Personal history of nicotine dependence Discharge Disposition: Home or Self Care 10/06/2024 Telephone Lung Screening Program - [address] [address] Kenya Luz [place] Appointment (1st Notification) from Last 3 Months Surgical History Surgery Date Site/Laterality Comments CHOLECYSTECTOMY PROCEDURE: HISTORICAL CHOLECYSTECTOMY BACK SURGERY PROCEDURE: HISTORICAL BACK SURGERY COLONOSCOPY 1998,2002,2007 PROCEDURE: HISTORICAL COLONOSCOPY Medical History Medical History Date Comments Asthma-COPD overlap syndrome (CMS/HCC V24, CMS/HCC V28) 08/21/2017 DX:Asthma-COPD overlap syndr ome (HCC) Cluster headaches 08/21/2017 DX:Cluster hea daches [...] Recorded Sex Assigned at Not on file Legal Sex Male 8:19 AM EST Gender Identity Not on file Sexual Orientation Not on file Obstetrics History Last Filed [...] 05/26/2024 10:24 AM EST Plan of Treatment Upcoming Encounters Date Type Department Care Team (Late st Contact Info) Description 10/28/2024 10:45 AM EDT Office Visit Pulmonolgy - [place] [address] [facility] [address] [place] [phone] Sameer Keys MD 175 [facility] [address] [place] [address] Health Maintenance Due Date Last Done Comments DTaP,Tdap,and Td Vaccines (1 - Tdap) 09/03/1971 Zoster Vaccines (1 of 2) 2002 Abdominal Aortic Aneurysm (AAA) Screen 04/07/2022 Cholesterol Screening (Lipid Panel) 04/07/2022 Colorectal Cancer Screening: Colonoscopy 04/07/2022 Depression Screening 04/07/2022 Falls Risk Assessment 04/07/2022 Hepatitis C Screening 04/07/2022 Medicare Annual Wellness Visit 04/07/2022 Social Influencers of Health Screening 04/07/2022 COVID-19 Vaccine ( season) 2024 02/13/2024, 02/04/2023, 04/09/2022, Additional history exists Influenza Vaccine (#1) 2024 , 02/22/2023, 02/13/2022, Additional history exists Lung Cancer Screening (Low Dose CT) 10/25/2025 10/25/2024, 10/28/2023, 10/22/2022, Additional history exists Pneumococcal Vaccine: 50+ Years Completed 02/22/2022, 06/30/2019 RSV Immunization Adult Patients Completed 04/11/2023 HIB Vaccines Aged Out No longer eligi [...] patient's age to complete this topic Meningococcal B Vaccine Aged Out No l onger eligible based on patient's age to complete this topic RSV Immunization Patients Under 20 months Aged Out No longer eligible based on patient's age to complete this topic Varicella Vaccines Aged Out No longer eligible based on patient's age to complete this topic Procedures Procedure Name Priority Date/Time Associated Diagnosis Comments CT LUNG SCREENING Routine 10/25/2024 9:0 5 AM EDT Encounter for screening for malignant neoplasm of respiratory organs Personal history of nicotine dependence from Last 3 Months Results * CT Lung Screening (10/25/2024 9:05 AM EDT) Anatomical Region Laterality Modality Chest Computed Tomogra phy 10/26/2024 3:33 PM EDT Impressions 10/26/2024 3:40 PM EDT Lung RADS 2. Guidelines recommend repeat low-dose screening CT in 12 months. -------- FINAL REPORT -------- Dictated By: Mario Durán Dictated Date: 10/26/2024 15:33 ET Assigned Physician: Mario Durán Reviewed and Electronically Signed By: Mario Durán Signed Date: 10/26/2024 15:40 ET Workstation ID: [id number] Transcribed By: Self Edit Transcribed Date: 10/26/2024 15:33 ET Narrative 10/26/2024 3:40 PM EDT PROCEDURE: Low-dose CT of the chest without intravenous contrast. TECHNIQUE: Low-dose CT of the chest without intravenous contrast administration. Coronal and sagittal reformats and MIP reconstructions were created. Dose length product: 111 mGy-cm. HISTORY: Lung cancer screening, >=20 pk yr smoking history in last 15 yrs (Age 50-80y) COMPARISON: 10/17/2023. FINDINGS: Lungs/pleura: Small amount of aspirated debris in the anterior trachea at the thoracic inlet. Mild bronchial wall thickening at the bases. Mild centrilobular and paraseptal emphysema. Stable elongated 7 x 3 mm right middle lobe nodule, series 3 image 145. A previously noted 3 mm nodule in the anterior left lower lobe, series 3 image 172, is also unchanged. There are scattered other very small calcified and noncalcified nodules. No pleural effusion or pneumothorax. Mediastinum/eliot: No mediastinal mass or lymphadenopathy. No appreciable hilar lymphadenopathy on limited noncontrast evaluation. Vasculature: Normal caliber pulmonary arteries. Moderate atherosclerotic calcifications of the aorta and great vessels. Cardiac: Normal heart size. Moderate coronary artery calcification. Chest wall: No axillary or supraclavicular lymphadenopathy. Limited abdomen: Cholecystectomy. Bones: Degenerative changes of the spine. Mild degenerative changes of the shoulders. Procedure Note Mario Durán MD - 10/26/2024 PROCEDURE: Low-dose CT of the chest without intravenous contrast. TECHNIQUE: Low-dose CT of the chest without intravenous contrastadministration. Coronal and sagittal reformats and MIP reconstructionswere created. Dose length product: 111 mGy-cm. HISTORY: Lung cancer screening, >=20 pk yr smoking history in last 15 yrs(Age 50-80y) COMPARISON: 10/17/2023. FINDINGS: Lungs/pleura: Small amount of aspirated debris in the anterior trachea atthe thoracic inlet. Mild bronchial wall thickening at the bases. Mildcentrilobular and paraseptal emphysema. Stable elongated 7 x 3 mm rightmiddle lobe nodule, series 3 image 145. A previously noted 3 mm nodule inthe anterior left lower lobe, series 3 image 172, is also unchanged.There are scattered other very small calcified and noncalcified nodules.No pleural effusion or pneumothorax. Mediastinum/eliot: No mediastinal mass or lymphadenopathy. No appreciablehilar lymphadenopathy on limited noncontrast evaluation. Vasculature: Normal caliber pulmonary arteries. Moderate atheroscleroticcalcifications of the aorta and great vessels. Cardiac: Normal heart size. Moderate coronary artery calcification. Chest wall: No axillary or supraclavicular lymphadenopathy. Limited abdomen: Cholecystectomy. Bones: Degenerative changes of the spine. Mild degenerative changes ofthe shoulders. IMPRESSION: Lung RADS 2. Guidelines recommend repeat low-dose screening CT in 12months. -------- FINAL REPORT -------- Dictated By: Mario Durán Dictated Date: 10/26/2024 15:33 ET Assigned Physician: Mario Durán Reviewed and Electronically Signed By: Mario Durán Signed Date: 10/26/2024 15:40 ET Workstation ID: [id number] Transcribed By: Self Edit Transcribed Date: 10/26/2024 15:33 ET us Arun Gomez MD IMG CT PROCEDURES Final Result from Last 3 Months Insurance [employer] - [place] MEDICARE ADVANTAGE Care Teams Label Sewer Relationship Specialty Start Date End Date Ian Carney MD [address] [id number] PCP - General 06/07/17
[2024-10-27 15:02] LABS: Hematocrit 41.8 % (42.0-52.0); Hemoglobin 14.1 g/dl (14.0-18.0); Imm Gran Abs Auto 0.03 X10*3/uL (0.00-0.03); Imm Gran Pct Auto 0.5 % (0.0-0.4); Lymphocytes Absolute Auto 0.6 X10*3/uL (1.2-4.9); Mean Corpuscular HGB Conc 33.7 g/dl (31.0-36.0); Mean Corpuscular Hemoglobin 32.0 pg (27.0-33.0); Mean Corpuscular Volume 95.0 fL (80.0-98.0); NRBC Abs Auto 0.000 X10*3/uL (0.0-0.012); NRBC Pct Auto 0.0 /100WBC (0.0-0.2); Platelet Count 160 X10*3/uL (160-400); Red Blood Count 4.40 X10*6/uL (4.60-5.80); White Blood Count 5.6 X10*3/uL (4.8-10.8)
[2024-10-27 15:35] LABS: Alanine Aminotransferase 85 U/L (0-40); Albumin Level 4.4 g/dL (3.5-5.0); Alkaline Phosphatase 120 U/L (39-117); Anion Gap 13 (12-20); Aspartate Amino Transferase 64 U/L (5-37); Blood Urea Nitrogen 13 mg/dL (9-16); Calcium 9.7 mg/dL (8.4-10.2); Carbon Dioxide 28 mmol/L (22-29); Chloride 103 mmol/L (96-108); Estimated Glomerular Filt Rate > 60; Gamma Glutamyl Transpeptidase 375 U/L (11-51); Potassium 4.5 mmol/L (3.3-5.1); Sodium 139 mmol/L (135-145); Total Protein 7.1 g/dL (6.5-8.0)
== END 2024-10-27 13:52 | disposition home or self-care (01) ==
LOC: HO.LAB 13:51
PROVIDERS: PCP Internal Medicine Medical Oncology; Visit Provider Internal Medicine Medical Oncology
DX: R10.13 Epigastric pain (principal); N20.1 Calculus of ureter; K21.9 Gastro-esophageal reflux disease without esophagitis
CPT/HCPCS: 36415; 80053; 82977; 85025; 85652

== ENCOUNTER 2024-10-29 15:21 | Outpatient (REF) | payer MEDICARE, SELFPAY ==
--- NOTE | ~2024-10-29 | US_ITS ---
EXAMINATION: US ABDOMEN COMPLETE CLINICAL INFORMATION: Epigastric pain, ureterolithiasis. COMPARISON: CT August 17, 2019 TECHNIQUE: Real-time imaging of the abdominal viscera. FINDINGS: PANCREAS: Visualized portions are unremarkable. Tail is obscured by bowel gas. ABDOMINAL AORTA: Moderate atherosclerotic calcifications are present without aneurysm. INFERIOR VENA CAVA: Visualized portions are normal. LIVER: The liver is normal in size. The liver contour is normal. Liver is hyperechoic. There is a hypoechoic mass that measures 2 cm diameter in the posterior inferior right hepatic segment with peripheral blood flow documented to represent cavernous hemangioma on prior CT. There is no intrahepatic biliary duct dilatation seen. GALLBLADDER: Gallbladder surgically absent. COMMON BILE DUCT: Extrahepatic bile duct diameter was 8 mm, unchanged. RIGHT KIDNEY: No hydronephrosis. No renal calculi. There is a bilobed anechoic 2.2 cm mass with increased through transmission consistent with a benign simple renal cyst, present on prior CT. The kidney measures 11.3 cm in maximum dimension. LEFT KIDNEY: No hydronephrosis. No renal calculi or focal parenchymal lesions. The kidney measures 9 cm in maximum dimension. SPLEEN: The spleen measures 11 cm in maximum dimension. FREE FLUID: None. US/US abdomen complete IMPRESSION: Fatty liver. 2 cm cavernous hemangioma in the inferior tip of the liver. Cholecystectomy. Benign simple renal cysts, right kidney. Electronically signed by: Selvin Soriano MD 10/29/2024 04:43 PM EDT
--- OUTSIDE RECORDS SUMMARY | 2024-10-29 15:24 | XMS_ITS | Patient Health Record ---
Author Organization [facility] Address [address] [place] [address] Care Team Providers Care Energy Engineer Name Role Phone Ian Carney MD Primary Care Provider UnavailIan Trejo Unavailable [phone] Allergies Allergen (clinical drug ingredient) Drug/Non Drug Allergy documented on EMR Reaction Allergy Type Onset Date Status Codeine Phosphate Unknown Drug Allergy Active Results Component Value Reference Range Notes Pathology (Not yet reviewed by provider) Interpretation: Performing Lab:[facility], [address] [place] [id number] Notes/Report: Reason For Referral No Information Medications [...] Status Risk Notes Problem Colon cancer screening (510274741) Colon cancer screening (Z12.11) Active confirmed Problem History of polyp of colon (situation) (449847555) Personal history of colonic polyps (Z86.010) Active confirmed Problem Pre-procedure evaluation check (969785749) Encounter for other preprocedural examination (Z01.818) Active confirmed Problem Diverticulosis o f large intestine without perforation or abscess without bleeding (K57.30) Active confirmed Encounters Encounter Location Date Provider Diagnosis [facility] Out[facility] [address] [place] [phone] 01/03/2024 Ian Cronin Colon cancer scree antonio [...] Insured Coverage Start Date Coverage End Date [facility] [address] [place], [place] [phone] [id number] BARBARA GROSS Self - patient is the insured Medical (General) History Medical History History ICD Code Colon polyps-> 1.0 cm Tubula r adenoma removed in 1998--neg colonoscopy in 2002 and 2007 except diverticulosis and hemorrhoids Hyperlipidemia GERD-EGD in 1998 with mild r eflux and gastritis with H.pylori(not treaeted)-on Famotidine OTC Denies DC,DM,CVA,renal disease Back pain--receives epidurals--he is cur rently on oxycodone Negative screening colonoscopy in 04/2013 COPD Kidney stone Surgical History Surgery Date(Month/Year) BACK SURGERY FOR DISC DISEASE CCY
--- OUTSIDE RECORDS SUMMARY | 2024-10-29 15:24 | XMS_ITS | Clinical Summary ---
Author Organization 175 [facility] Address [address] [place] [address] Phone Care Team Providers Care Wheel Mill Operator Name Role Phone Ian Carney MD Primary Care Provider [phone] Allergies Active Allergy Reactions Criticality Noted Date [...] NEEDED FOR PAIN. DX: PAIN (722.80). Active albuterol HFA (PROAIR HFA ; PROVENTIL HFA ; VENTOLIN HFA) 90 mcg/actuation inhaler Inhale 2 puffs by mouth every 6 (six) hours if needed for wheezing. 6.7 g 11 10/28/2024 6 Active Active Problems Problem Noted Date Diagnosed Date Arthritis of carpometacarpal (CMC) joint of righ t thumb 05/27/2024 GERD (gastroesophageal reflux disease) 8 Cluster headaches 08/21/2017 Gout 08/21/2017 Hearing loss, left 08/21/2017 Lumbar disc herniation 08/21/2017 Overview (05/26/2024): 1977 Tubular adenoma of colon 08/21/2017 Asthma-COPD overlap syndrome (CMS/HCC V24, CMS/H CC V28) 08/21/2017 Encounters Date Type Department Care Team Description 10/28/2024 10:45 AM EDT Office Visit Pulmonolgy - [place] 175 [facility] [address] [place] [address] Sameer Keys MD Pulmonary emphysema, unspecified emphysema type (CMS/[facility] V24, CMS/[facility] V28) (Primary Dx) 10/25/2024 9:01 AM EDT - 10/25/2024 11:59 PM EDT Hospital Encounter [facility] CT Scan [address] [place] [address] Encounter for screening for malignant neoplasm of respiratory organs; Personal history of nicotine dependence Discharge Disposition: Home or Self Care 10/06/2024 Telephone Lung Screening Program - [place] [address] [facility] [address] [place] [address] Kenya Luz [place] Appointment (1st Notification) from Last 3 Months Surgical History Surgery Date Site/Laterality Comments CHOLECYSTECTOMY PROCEDURE: HISTORICAL CHOLECYSTECTOMY BACK SURGERY PROCEDURE: HISTORICAL BACK SURGERY COLONOSCOPY 1998,2002,2007 PROCEDURE: HISTORICAL COLONOSCOPY Medical History Medical History Date Comments Asthma-COPD overlap syndrome (CMS/[facility] V24, CMS/[facility] V28) 08/21/2017 DX:Asthma-COPD overlap syndr ome (HCC) [...] Sign Reading Time Taken Comments Blood Pressure 130/60 10/28/2024 10:52 AM EDT Pulse 93 10/28/2024 10:52 AM EDT Temperature 36.4 C (97.6 F) 10/28/2024 10:52 AM EDT Respiratory Rate 20 10/28/2024 10:52 AM EDT Oxygen Saturation 97% 10/28/2024 10:52 AM EDT Inhaled Oxygen Concentration - - Weight 84.9 kg (187 lb 3.2 oz) 10/28/2024 10:52 AM EDT Height 180.3 cm (5' 11 ) 10/28/2024 10:52 AM EDT Body Mass Index 26.11 10/28/2024 10:52 AM EDT Plan of Treatment Upcoming Encounters Date Type Department Care Team (Late st Contact Info) Description 10/28/2025 10:45 AM EDT Office Visit Pulmonolgy - [place] [address] [facility] [address] [place] [phone] Sameer Keys MD [address] [facility] [address] [place] [address] Health Maintenance Due Date Last Done Comments [...] Signed Date: 10/26/2024 15:40 ET Workstation ID: [id number] Transcribed By: Self Edit Transcribed Date: 10/26/2024 [...] Signed Date: 10/26/2024 15:40 ET Workstation ID: [id number] Transcribed By: Self Edit Transcribed Date: 10/26/2024 15:33 ET Arun Gomez MD IMG CT PROCEDURES Final Result from Last 3 Months Insurance [employer] - [place] MEDICARE ADVANTAGE Care Teams Wheel Mill Operator Relationship Specialty [place] [address] [place] [id number] PCP - General 06/07/17
== END 2024-10-29 15:22 | disposition home or self-care (01) ==
LOC: HO.US 15:21
PROVIDERS: PCP Internal Medicine Medical Oncology; Visit Provider Internal Medicine Medical Oncology
DX: K21.9 Gastro-esophageal reflux disease without esophagitis (principal); R10.13 Epigastric pain
CPT/HCPCS: 76700

== ENCOUNTER → 2024-10-29 15:25 | Outpatient (BNV) | payer MEDICARE, SELFPAY | PROVIDERS: PCP Internal Medicine Medical Oncology; Visit Provider Radiology Diagnostic Radiology | DX: K76.0 Fatty (change of) liver, not elsewhere classified (principal); D18.03 Hemangioma of intra-abdominal structures; N28.1 Cyst of kidney, acquired | CPT/HCPCS: 76700 ==

== ENCOUNTER 2025-02-04 10:15 | Outpatient (REF) | payer MEDICARE, SELFPAY ==
[2025-02-04 13:27] LABS: MANUAL DIFF FLAG NO
[2025-02-04 13:57] LABS: Alanine Aminotransferase 64 U/L (0-40); Albumin Level 4.6 g/dL (3.5-5.0); Alkaline Phosphatase 105 U/L (39-117); Anion Gap 13 (12-20); Aspartate Amino Transferase 50 U/L (5-37); Blood Urea Nitrogen 16 mg/dL (9-16); Calcium 10.1 mg/dL (8.4-10.2); Carbon Dioxide 28 mmol/L (22-29); Chloride 104 mmol/L (96-108); Cholesterol 200 mg/dL (<200); Estimated Glomerular Filt Rate > 60; HDL Cholesterol 69 mg/dL (>40); Potassium 4.8 mmol/L (3.3-5.1); Sodium 140 mmol/L (135-145); Total Protein 7.7 g/dL (6.5-8.0); Triglycerides 96 mg/dL (<150)
[2025-02-04 14:13] LABS: Hematocrit 44.1 % (42.0-52.0); Hemoglobin 15.1 g/dl (14.0-18.0); Imm Gran Abs Auto 0.02 X10*3/uL (0.00-0.03); Imm Gran Pct Auto 0.3 % (0.0-0.4); Lymphocytes Absolute Auto 1.1 X10*3/uL (1.2-4.9); Mean Corpuscular HGB Conc 34.2 g/dl (31.0-36.0); Mean Corpuscular Hemoglobin 32.7 pg (27.0-33.0); Mean Corpuscular Volume 95.5 fL (80.0-98.0); NRBC Abs Auto 0.000 X10*3/uL (0.0-0.012); NRBC Pct Auto 0.0 /100WBC (0.0-0.2); Platelet Count 179 X10*3/uL (160-400); Red Blood Count 4.62 X10*6/uL (4.60-5.80); White Blood Count 6.2 X10*3/uL (4.8-10.8)
[2025-02-04 17:22] LABS: Prostate Specific Antigen 0.55 ng/mL (<0.05-4.0)
== END 2025-02-04 10:16 | disposition home or self-care (01) ==
LOC: HO.HMGCLDS 10:15
PROVIDERS: PCP Internal Medicine Medical Oncology; Visit Provider Internal Medicine Medical Oncology
DX: K21.9 Gastro-esophageal reflux disease without esophagitis (principal); E78.5 Hyperlipidemia, unspecified; R35.1 Nocturia; Z12.5 Encounter for screening for malignant neoplasm of prostate
CPT/HCPCS: 36415; 80053; 80061; 84153; 85025

== ENCOUNTER 2025-03-31 09:46 | Outpatient (REF) | payer MEDICARE, SELFPAY ==
--- OUTSIDE RECORDS SUMMARY | 2025-03-31 10:54 | XMS_ITS | Clinical Summary ---
Author Organization 175 [facility] Address [address] [place] [address] Phone Care Team Providers Care Superintendent Building Name Role Phone Ian Carney MD Primary Care Provider [phone] Allergies Active Allergy Reactions Criticality Noted Date Comments Codeine Nausea And Vomiting 06/28/2017 Medications atorvastatin (LIPITOR) 10 mg tablet Take 1 tablet (10 mg total) by mouth 1 (one) time each day. Active oxyCODONE (ROXICODONE) 5 mg immediate release tablet TAKE 1 TAB BY MOUTH EVERY 4 HOURS NEEDED FOR PAIN. DX: PAIN (722.80). Active albuterol HFA (PROAIR HFA ; PROVENTIL HFA ; VENTOLIN HFA) 90 mcg/actuation inhaler Inhale 2 puffs by mouth every 6 (six) hours if needed for wheezing. 6.7 g 11 10/28/2024 6 Active Trelegy Ellipta 100-62.5-25 mcg inhaler INHALE 1 PUFF INTO THE LUNGS DAILY FOR 30 DAYS. 60 each 11 02/22/2025 Active Active Problems Problem Noted Date Diagnosed Date Arthritis of carpometacarpal (CMC) joint of righ t thumb 05/27/2024 GERD (gastroesophageal reflux disease) 8 Cluster headaches 08/21/2017 Gout 08/21/2017 Hearing loss, left 08/21/2017 Lumbar disc herniation 08/21/2017 Overview (05/26/2024): 1977 Tubular adenoma of colon 08/21/2017 Asthma-COPD overlap syndrome (CMS/HCC V24, CMS/H CC V28) 08/21/2017 Surgical History Surgery Date Site/Laterality Comments CHOLECYSTECTOMY [...] disc herniation 08/21/2017 DX:Lumbar disc herniation; COMMENT: 1976 Gout 08/21/2017 DX:Gout Family History Medical History [...] Description 10/28/2025 10:45 AM EDT Office Visit Pulmonology - [place] 175 [facility] [address] [place] [address] Sameer Keys MD [facility] [place] [address] Health Maintenance Due Date Last Done Comments Colorectal Cancer Screening: Colonoscopy 1952 DTaP,Tdap,and Td Vaccines (1 - Tdap) 09/03/1971 Zoster Vaccines (1 of 2) 2002 Abdominal Aortic Aneurysm (AAA) Screen 04/07/2022 Cholesterol Screening (Lipid Panel) 04/07/2022 Falls Risk Assessment 04/07/2022 Hepatitis C Screening 04/07/2022 Medicare Annual Wellness Visit 04/07/2022 Social Influencers of Health Screening 04/07/2022 Depression Screening 04/29/2024 COVID-19 Vaccine ( season) 2024 02/13/2024, 02/04/2023, [...] of nicotine dependence from Last 3 Months or Most Recently Relevant to Health Maintenance Results * CT Lung Screening (10/25/2024 9:05 [...] Signed Date: 10/26/2024 15:40 ET Workstation ID: [id number] Transcribed By: Self Edit Transcribed Date: 10/26/2024 [...] Signed Date: 10/26/2024 15:40 ET Workstation ID: [id number] Transcribed By: Self Edit Transcribed Date: 10/26/2024 15:33 ET Arun Gomez MD IMG CT PROCEDURES Final Result from Last 3 Months or Most Recently Relevant to Health Maintenance Insurance [employer] - [place] MEDICARE ADVANTAGE Care Teams Superintendent Building Relationship Specialty Start Date End Date Ian Carney MD [address] [address] PCP - General 06/07/17
[2025-03-31 14:45] LABS: Alanine Aminotransferase 47 U/L (0-40); Albumin Level 4.3 g/dL (3.5-5.0); Alkaline Phosphatase 84 U/L (39-117); Anion Gap 12 (12-20); Aspartate Amino Transferase 40 U/L (5-37); Blood Urea Nitrogen 15 mg/dL (9-16); Calcium 9.4 mg/dL (8.4-10.2); Carbon Dioxide 27 mmol/L (22-29); Chloride 104 mmol/L (96-108); Cholesterol 210 mg/dL (<200); Estimated Glomerular Filt Rate > 60; Gamma Glutamyl Transpeptidase 255 U/L (11-51); HDL Cholesterol 53 mg/dL (>40); Potassium 3.7 mmol/L (3.3-5.1); Sodium 139 mmol/L (135-145); Total Protein 7.1 g/dL (6.5-8.0); Triglycerides 123 mg/dL (<150)
== END 2025-03-31 09:47 | disposition home or self-care (01) ==
LOC: HO.HMGCLDS 09:46
PROVIDERS: PCP Internal Medicine Medical Oncology; Visit Provider Internal Medicine Medical Oncology
DX: R79.89 Other specified abnormal findings of blood chemistry (principal); E78.5 Hyperlipidemia, unspecified; E66.3 Overweight
CPT/HCPCS: 36415; 80053; 80061; 82977

== ENCOUNTER 2025-04-09 11:37 | Outpatient (REF) | payer MEDICARE, SELFPAY ==
[2025-04-09 14:56] LABS: Free T4 (Free Thyroxine) 0.92 ng/dL (0.71-1.85); Thyroid Stimulating Hormone 0.99 uIU/mL (0.32-4.0)
== END 2025-04-09 11:38 | disposition home or self-care (01) ==
LOC: HO.HMGCLDS 11:37
PROVIDERS: PCP Internal Medicine Medical Oncology; Visit Provider Internal Medicine Medical Oncology
DX: R79.89 Other specified abnormal findings of blood chemistry (principal); R53.83 Other fatigue
CPT/HCPCS: 36415; 84439; 84443; 84481